=== PATIENT | male | born 1960 | race Caucasian/White ===

== ENCOUNTER 2016-04-19 14:39 | Inpatient (IN) | payer OTHER, MEDICARE ==
[2016-04-19] VITALS (8 sets, daily range): BP systolic 134–164; BP diastolic 74–91; PULSE 86–89; RESP 18–26; TEMP 99.9; O2SAT 86–98
[~2016-04-19] VITALS: Ht 182.9 cm; Wt 130.8 kg
[~2016-04-19 14:39] MED LIST: BAYE325T3 PO; CARV12.5 PO; DIGO0.12 PO; DOCU100T9 PO; FOSI20TA PO; FURO20TA PO; NEXI40GR PO; SYMB160A INH; TRAM50 PO
[2016-04-19] MEDS ORDERED: SODIUM CHLORIDE 0.9% FLUSH 5 ML FLUSH IVF PRN (15:45)
--- NOTE | 2016-04-19 16:16 | RADRPT ---
EXAM DATE/TIME: 04/19/2016 15:40 [facility] COMPARISON: CHEST SINGLE AP, January 24, 2012, 13:55. INDICATIONS : Patient complains of heart palpitations and chest pain. Also complains of generalized weakness. MEDICAL HISTORY : Asthma. SURGICAL HISTORY : Mitral valve replacement. ENCOUNTER: Initial ACUITY: 1 day PAIN SCORE: 7/10 LOCATION: chest FINDINGS: A single view of the chest demonstrates postoperative median sternotomy. Tortuous aorta. No focal con solidation or significant effusion. No pneumothorax. Mild cardiomegaly. CONCLUSION: 1. Mild cardiomegaly. Tortuous aorta. Minimal basilar dependent atelectasis. Hernán Ramey MD on April 19, 2016 at 16:11 Board Certified Radiologist. This report was verified electronically.
[2016-04-19 16:23] LABS: APTT (PATIENT) 36.2 SEC (24.3-30.1); BLOOD, URINE NEG (NEG); COMMENT (UR) CULT NOT INDICATED; CULTURE IF INDICATED CULT NOT INDICATED; GLUCOSE,URINE NEG (NEG); INTERNATIONAL NORMALIZED RATIO 1.5 RATIO; KETONE, URINE NEG (NEG); MUCUS URINE FEW /lpf (OCC); NITRITE,URINE NEG (NEG); PH, URINE 7.5 (5.0-8.5); PROTHROMBIN TIME - PATIENT 17.1 SEC (9.8-11.6); URINE COLOR YELLOW (YELLW/STRAW)
--- NOTE | 2016-04-19 16:25 | PD ---
HPI Chief Complaint: General Weakness Time Seen by Provider: 16:25 Travel History International Travel<30 days: No Contact w/Intl Traveler<30days: No Traveled to known affect area: No History of Present Illness HPI 55-year-old male with a history of CHF, mitral valve repair, atrial fibrillation , asthma, hypertension, DVT, anticoagulated on Coumadin presents to the emergency department for evaluation of worsening weakness and shortness of breath for the past 1-2 weeks. The patient also states he has had intermittent left anterior chest pressure over the past 2 weeks lasting for about 20-30 minutes at a time and resolving on its own, has had no chest pain today. He admits to having swelling in his lower legs but states that this is at his baseline, he is not more swollen than usual. He complains of feeling very weak states that he has been unable to get out of bed with the exception of using the bathroom for the past 2 weeks. States that when he gets up and tries to walk he feels lightheaded and as though he is going to pass out, denies actual syncope or loss of consciousness. Complains of subjective fevers and chills. Denies cough or cold symptoms, abdominal pain, dirreaha, bloody stool, dark stool, nausea, vomiting, numbness or tingling. No other complaints. PFSH Past Medical History Arthritis: Yes Asthma: Yes Atrial Fibrillation: Yes (COUMADIN) Blood Disorders: No Anxiety: Yes Depression: Yes Cancer: No Cardiac Catheterization: Yes (JAN 2012) Cardiovascular Problems: Yes High Cholesterol: Yes Congestive Heart Failure: Yes Diabetes: No Endocrine: No GERD: Yes Genitourinary: Yes (erectile dysfunction/UTIs) Hypertension: Yes Immune Disorder: No Musculoskeletal: Yes (Chronic Low Back) Neurologic: Yes (Post head injury) Psychiatric: Yes Reproductive: No Respiratory: Yes Sleep Apnea: Yes Past Surgical History Appendectomy: Yes Valve Replacement: Yes (MITRAL VALVE REPAIR) Other Surgery: Yes (RIGHT FOREARM/WRIST) Social History Alcohol Use: No Tobacco Use: No Substance Use: No Allergies-Medications (Allergen,Severity, Reaction): Coded Allergies: Gabapentin (Verified Allergy, Severe, 01/24/12) Nitroglycerin (Verified Allergy, Severe, 01/24/12) Silvadene (Verified Allergy, Severe, 01/24/12) Sulfa (Verified Allergy, Severe, 01/24/12) Viagra (Verified Allergy, Severe, 01/24/12) Reported Meds & Prescriptions Reported Meds & Active Scripts Active Ultram (Tramadol HCl) 50 Mg Tab 1-2 Tab PO Q6HPRN FOR PAIN Reported Coreg (Carvedilol) 12.5 Mg Tab 12.5 Mg PO BID Furosemide 20 Mg Tab 20 Mg PO DAILY Fosinopril Sodium 20 Mg Tab 20 Mg PO DAILY Docusate Sodium 100 Mg Cap 100 Mg PO DAILYPRN Digoxin 0.125 Mg Tab 0.25 Mg PO DAILY DOSE INCREASED Symbicort (Budesonide/Formoterol Fumarate) 160 Mcg/4.5 Mcg Aer 2 Puff INH BID * SHAKE WELL BEFORE USE * Nexium (Esomeprazole Magnesium) 40 Mg Gra 40 Mg PO DAILY Ludmila Aspirin (Aspirin) 325 Mg Tab 325 Mg PO DAILYPRN Review of Systems Except as stated in HPI: all other systems reviewed are Neg Physical Exam Narrative GENERAL: Well-nourished and well-developed pleasant male patient in no acute distress. SKIN: Warm and dry. HEAD: Normocephalic and atraumatic. EYES: No injection, drainage, or hyphema noted. PERRLA. EOMI. ENT: No nasal drainage noted. Oropharynx is clear. NECK: Supple and the trachea is midline. CARDIOVASCULAR: Regular rate and rhythm. RESPIRATORY: Decreased breath sounds throughout. No accessory muscle use. GASTROINTESTINAL: Abdomen is soft, non-tender, and nondistended. MUSCULOSKELETAL: Mild swelling of ankles bilaterally. No obvious deformities, cyanosis, or ecchymosis is present throughout the upper and lower extremities. Patient has full range of motion without any signs of neurovascular compromise. NEUROLOGICAL: Awake, alert, and oriented. Normal speech and gait. Cranial nerves are grossly intact. Data Data Last Documented VS Vital Signs Date Time Temp Pulse Resp B/P Pulse Ox O2 Delivery O2 Flow Rate FiO2 04/19/16 18:58 89 18 134/74 98 Nasal Cannula 2 04/19/16 15:39 99.9 Orders Electrocardiogram (04/19/16 15:31) Complete Blood Count With Diff (04/19/16 15:31) Comprehensive Metabolic Panel (04/19/16 15:31) Troponin I (04/19/16 15:31) Urinalysis - C+S If Indicated (04/19/16 15:31) Chest, Single Ap (04/19/16 15:31) Ecg Monitoring (04/19/16 15:31) Iv Access Insert/Monitor (04/19/16 15:31) Oximetry (04/19/16 15:31) Sodium Chloride 0.9% Flush (Ns Flush) (04/19/16 15:45) Prothrombin Time / Inr (Pt) (04/19/16 15:34) Act Partial Throm Time (Ptt) (04/19/16 15:34) B-Type Natriuretic Peptide (04/19/16 16:24) Albuterol-Ipratropium Neb (Duoneb Neb) (04/19/16 16:30) Digoxin (04/19/16 16:27) Ct Pulmonary Angiogram (04/19/16 16:33) Sodium Chlor 0.9% 1000 Ml Inj (Ns 1000 M (04/19/16 16:33) Acetaminophen (Tylenol) (04/19/16 17:30) Ct Brain W/O Iv Contrast(Rout) (04/19/16 17:43) Methylprednisolone So Succ Inj (Solumedr (04/19/16 18:15) Albuterol Neb (Albuterol Neb) (04/19/16 18:15) Iohexol 350 Inj (Omnipaque 350 Inj) (04/19/16 18:28) Azithromycin Inj (Zithromax Inj) (04/19/16 19:15) Ceftriaxone Inj (Rocephin Inj) (04/19/16 19:15) Admit Order (Ed Use Only) (04/19/16 19:16) Labs Laboratory Tests Test 04/19/16 04/19/16 15:52 16:45 White Blood Count 7.6 TH/MM3 Red Blood Count 4.02 MIL/MM3 Hemoglobin 12.0 GM/DL Hematocrit 35.1 % Mean Corpuscular Volume 87.3 FL Mean Corpuscular Hemoglobin 29.8 PG Mean Corpuscular Hemoglobin 34.2 % Concent Red Cell Distribution Width 14.9 % Platelet Count 157 TH/MM3 Mean Platelet Volume 9.1 FL Neutrophils (%) (Auto) 68.0 % Lymphocytes (%) (Auto) 18.5 % Monocytes (%) (Auto) 12.3 % Eosinophils (%) (Auto) 0.9 % Basophils (%) (Auto) 0.3 % Neutrophils # (Auto) 5.2 TH/MM3 Lymphocytes # (Auto) 1.4 TH/MM3 Monocytes # (Auto) 0.9 TH/MM3 Eosinophils # (Auto) 0.1 TH/MM3 Basophils # (Auto) 0.0 TH/MM3 CBC Comment DIFF FINAL Differential Comment Prothrombin Time 17.1 SEC Prothromb Time International 1.5 RATIO Ratio Activated Partial 36.2 SEC Thromboplast Time Urine Color YELLOW Urine Turbidity CLEAR Urine pH 7.5 Urine Specific [place] 1.008 Urine Protein NEG mg/dL Urine Glucose (UA) NEG mg/dL Urine Ketones NEG mg/dL Urine Occult Blood NEG Urine Nitrite NEG Urine Bilirubin NEG Urine Urobilinogen LESS THAN 2.0 MG/DL Urine Leukocyte Esterase NEG Urine WBC 1 /hpf Urine Mucus FEW /lpf Microscopic Urinalysis Comment CULT NOT INDICATED Sodium Level 140 MEQ/L Potassium Level 3.3 MEQ/L Chloride Level 105 MEQ/L Carbon Dioxide Level 27.3 MEQ/L Anion Gap 8 MEQ/L Blood Urea Nitrogen 8 MG/DL Creatinine 0.87 MG/DL Estimat Glomerular Filtration 90 ML/MIN Rate Random Glucose 94 MG/DL Calcium Level 8.5 MG/DL Total Bilirubin 1.0 MG/DL Aspartate Amino Transf 19 U/L (AST/SGOT) Alanine Aminotransferase 27 U/L (ALT/SGPT) Alkaline Phosphatase 43 U/L Troponin I 0.03 NG/ML Total Protein 7.0 GM/DL Albumin 3.7 GM/DL Digoxin Level LESS THAN 0.1 NG/ML B-Type Natriuretic Peptide 178 PG/ML MDM Medical Decision Making Medical Screen Exam Complete: Yes Emergency Medical Condition: Yes Differential Diagnosis Pneumonia versus asthma exacerbation versus CHF exacerbation versus PE Narrative Course 55-year-old male presents to the emergency department for evaluation of weakness and shortness of breath for 2 weeks. Patient has a low-grade fever of 99.9F. Otherwise vital signs are stable. EKG shows atrial fibrillation with no acute ST elevations or depressions. IV access is obtained, labs have been drawn and sent. Duonebs ordered. Chest x-ray shows mild cardiomegaly with a tortuous aorta and minimal basilar dependent atelectasis, otherwise unremarkable. CBC shows mild anemia with hemoglobin of 12.0, hematocrit 35.1. CMP shows mild hypokalemia with a potassium of 3.3. BNP is mildly elevated at 178. Coags show that the patient's INR is subtherapeutic at 1.5. Digoxin is less than 0.1. Urinalysis is unremarkable. Head CT is unremarkable. CT pulmonary angiogram is negative for PE but does show right upper lobe pneumonia. After 3 DuoNebs the patient has better air movement but still has decreased breath sounds on the left and mild expiratory wheeze on the right. The patient' s oxygen saturation is maintained on room air at 96% but with minimal exertion of a few steps his sats drop to 86% on room air. We'll give him another 3 albuterol treatments as well as Solu-Medrol 125 mg IV. I have ordered Rocephin 1 g and Zithromax 500 mg. Patient will be admitted for IV antibiotics, nebulizer treatments and steroids. I discussed the case with my attending physician Dr. Morales who is aware of the patients history, physical examination findings, and treatment plan. Physician Communication Physician Communication I spoke with Dr. Cervantes [facility] who agrees to admit the patient to her service. Diagnosis Primary Impression: Community acquired pneumonia Additional Impression: Hypoxia Admitting Information Admitting Physician Requests: Admit Kajal Torre Apr 19, 2016 16:25
[2016-04-19] MEDS ORDERED: SODIUM CHLOR 0.9% 1000 ML INJ 1,000 ML IV SCH (16:33)
[2016-04-19 16:39] LABS: AUTOMATED NEUTROPHIL # 5.2 TH/MM3 (1.8-7.7); BASOPHIL % 0.3 % (0.0-2.0); EOSINOPHIL # 0.1 TH/MM3 (0-0.4); EOSINOPHIL % 0.9 % (0.0-4.0); HEMATOCRIT 35.1 % (39.0-51.0); HEMO FLAGS DIFF FINAL; LYMPH % 18.5 % (9.0-44.0); LYMPHOCYTE # 1.4 TH/MM3 (1.0-4.8); MEAN CELL VOLUME 87.3 FL (80.0-100.0); MEAN CORPUSCULAR HEMOGLOBIN 29.8 PG (27.0-34.0); MEAN CORPUSCULAR HGB CONC 34.2 % (32.0-36.0); MONO % 12.3 % (0.0-8.0); PLATELET COUNT 157 TH/MM3 (150-450); RED BLOOD COUNT 4.02 MIL/MM3 (4.50-5.90); RED CELL DISTRIBUTION WIDTH 14.9 % (11.6-17.2); WHITE BLOOD COUNT 7.6 TH/MM3 (4.0-11.0)
[2016-04-19] MEDS: RESP: ALBUTEROL 2.5 MG/IPRATROPIUM 0.5 MG NEB (SCH) INH (16:48)
[2016-04-19 17:12] LABS: ALT (GPT) 27 U/L (12-78); ANION GAP 8 MEQ/L (5-15); AST (GOT) 19 U/L (15-37); BICARBONATE 27.3 MEQ/L (21.0-32.0); BLOOD UREA NITROGEN 8 MG/DL (7-18); CHLORIDE 105 MEQ/L (98-107); GLOMERULAR FILTRATION RATE 90 ML/MIN (>89); POTASSIUM 3.3 MEQ/L (3.5-5.1); SODIUM (NA) 140 MEQ/L (136-145)
[2016-04-19 17:16] LABS: ALKALINE PHOSPHATASE 43 U/L (45-117)
[2016-04-19] MEDS ORDERED: ACETAMINOPHEN 500 MG CPLT PO ONE (17:30)
[2016-04-19] MEDS ORDERED: methylPREDNISolone SOD SUCC 125 MG/2 ML VIAL IV PUSH ONE (18:15)
[2016-04-19] MEDS: RESP: ALBUTEROL 2.5 MG/3 ML NEB (SCH) INH ×2 (18:15→18:44)
[2016-04-19] MEDS ORDERED: IOHEXOL 350 MG/ML 10 ML VIAL (for RAD DIAG) IV ONE (18:28)
--- NOTE | 2016-04-19 18:36 | RADRPT ---
EXAM DATE/TIME: 04/19/2016 18:21 [facility] COMPARISON: No previous studies available for comparison. INDICATIONS : Increased weakness with multiple falls. RADIATION DOSE: 56.35 CTDIvol (mGy) MEDICAL HISTORY : Congestive hearrt failure. Hypertension. SURGICAL HISTORY : Appendectomy. Mitral valve repair ENCOUNTER: Initial ACUITY: 2 weeks PAIN SCALE: 3/10 LOCATION: cranial TECHNIQUE: Multiple contiguous axial images were obtained of the head. Using automated exposure control and adj ustment of the mA and/or kV according to patient size, radiation dose was kept as low as reasonably a chievable to obtain optimal diagnostic quality images. FINDINGS: CEREBRUM: The ventricles are normal for age. No evidence of midline shift, mass lesion, hemorrhage or acute in farction. No extra-axial fluid collections are seen. POSTERIOR FOSSA: The cerebellum and brainstem are intact. The 4th ventricle is midline. The cerebellopontine angle i s unremarkable. EXTRACRANIAL: The visualized portion of the orbits is intact. SKULL: The calvaria is intact. No evidence of skull fracture. CONCLUSION: Normal examination for a patient of this age. Hernán Ramey MD on April 19, 2016 at 18:33 Board Certified Radiologist. This report was verified electronically.
--- NOTE | 2016-04-19 18:50 | RADRPT ---
EXAM DATE/TIME: 04/19/2016 18:24 [facility] COMPARISON: No previous studies available for comparison. INDICATIONS : Increased weakness with shortness of breath; evaluate for pulmonary embolism. IV CONTRAST: 74 cc Omnipaque 350 (iohexol) IV RADIATION DOSE: 25.57 CTDIvol (mGy) MEDICAL HISTORY : Congestive hearrt failure. Hypertension. SURGICAL HISTORY : Appendectomy. Mitral valve repair. ENCOUNTER: Initial ACUITY: 2 weeks PAIN SCALE: 4/10 LOCATION: chest TECHNIQUE: Volumetric scanning of the chest was performed using a pulmonary embolism protocol MIP images were re constructed. Using automated exposure control and adjustment of the mA and/or kV according to patien t size, radiation dose was kept as low as reasonably achievable to obtain optimal diagnostic quality images. FINDINGS: There is some patchy groundglass opacity mostly in the upper lungs most characteristic of a mild bron chopneumonia. Heart size mildly enlarged with moderate to severe coronary calcifications. Previous mi tral valve repair. No filling defects to suggest pulmonary embolic disease. CONCLUSION: 1. Negative for pulmonary embolus. 2. Patchy groundglass opacity especially right upper lobe. Differential diagnosis includes pneumonia and hypersensitivity pneumonitis. Hernán Ramey MD on April 19, 2016 at 18:45 Board Certified Radiologist. This report was verified electronically.
--- NOTE | 2016-04-19 19:14 | PD ---
Data Data Last Documented VS Vital Signs Date Time Temp Pulse Resp B/P Pulse Ox O2 Delivery O2 Flow Rate FiO2 04/19/16 18:58 89 18 134/74 98 Nasal Cannula 2 04/19/16 15:39 99.9 Orders Electrocardiogram (04/19/16 15:31) Complete Blood Count With Diff (04/19/16 15:31) Comprehensive Metabolic Panel (04/19/16 15:31) Troponin I (04/19/16 15:31) Urinalysis - C+S If Indicated (04/19/16 15:31) Chest, Single Ap (04/19/16 15:31) Ecg Monitoring (04/19/16 15:31) Iv Access Insert/Monitor (04/19/16 15:31) Oximetry (04/19/16 15:31) Sodium Chloride 0.9% Flush (Ns Flush) (04/19/16 15:45) Prothrombin Time / Inr (Pt) (04/19/16 15:34) Act Partial Throm Time (Ptt) (04/19/16 15:34) B-Type Natriuretic Peptide (04/19/16 16:24) Albuterol-Ipratropium Neb (Duoneb Neb) (04/19/16 16:30) Digoxin (04/19/16 16:27) Ct Pulmonary Angiogram (04/19/16 16:33) Sodium Chlor 0.9% 1000 Ml Inj (Ns 1000 M (04/19/16 16:33) Acetaminophen (Tylenol) (04/19/16 17:30) Ct Brain W/O Iv Contrast(Rout) (04/19/16 17:43) Methylprednisolone So Succ Inj (Solumedr (04/19/16 18:15) Albuterol Neb (Albuterol Neb) (04/19/16 18:15) Iohexol 350 Inj (Omnipaque 350 Inj) (04/19/16 18:28) Azithromycin Inj (Zithromax Inj) (04/19/16 19:15) Ceftriaxone Inj (Rocephin Inj) (04/19/16 19:15) Labs Laboratory Tests Test 04/19/16 04/19/16 15:52 16:45 White Blood Count 7.6 TH/MM3 Red Blood Count 4.02 MIL/MM3 Hemoglobin 12.0 GM/DL Hematocrit 35.1 % Mean Corpuscular Volume 87.3 FL Mean Corpuscular Hemoglobin 29.8 PG Mean Corpuscular Hemoglobin 34.2 % Concent Red Cell Distribution Width 14.9 % Platelet Count 157 TH/MM3 Mean Platelet Volume 9.1 FL Neutrophils (%) (Auto) 68.0 % Lymphocytes (%) (Auto) 18.5 % Monocytes (%) (Auto) 12.3 % Eosinophils (%) (Auto) 0.9 % Basophils (%) (Auto) 0.3 % Neutrophils # (Auto) 5.2 TH/MM3 Lymphocytes # (Auto) 1.4 TH/MM3 Monocytes # (Auto) 0.9 TH/MM3 Eosinophils # (Auto) 0.1 TH/MM3 Basophils # (Auto) 0.0 TH/MM3 CBC Comment DIFF FINAL Differential Comment Prothrombin Time 17.1 SEC Prothromb Time International 1.5 RATIO Ratio Activated Partial 36.2 SEC Thromboplast Time Urine Color YELLOW Urine Turbidity CLEAR Urine pH 7.5 Urine Specific [place] 1.008 Urine Protein NEG mg/dL Urine Glucose (UA) NEG mg/dL Urine Ketones NEG mg/dL Urine Occult Blood NEG Urine Nitrite NEG Urine Bilirubin NEG Urine Urobilinogen LESS THAN 2.0 MG/DL Urine Leukocyte Esterase NEG Urine WBC 1 /hpf Urine Mucus FEW /lpf Microscopic Urinalysis Comment CULT NOT INDICATED Sodium Level 140 MEQ/L Potassium Level 3.3 MEQ/L Chloride Level 105 MEQ/L Carbon Dioxide Level 27.3 MEQ/L Anion Gap 8 MEQ/L Blood Urea Nitrogen 8 MG/DL Creatinine 0.87 MG/DL Estimat Glomerular Filtration 90 ML/MIN Rate Random Glucose 94 MG/DL Calcium Level 8.5 MG/DL Total Bilirubin 1.0 MG/DL Aspartate Amino Transf 19 U/L (AST/SGOT) Alanine Aminotransferase 27 U/L (ALT/SGPT) Alkaline Phosphatase 43 U/L Troponin I 0.03 NG/ML Total Protein 7.0 GM/DL Albumin 3.7 GM/DL Digoxin Level LESS THAN 0.1 NG/ML B-Type Natriuretic Peptide 178 PG/ML MDM Supervised Visit with NESTOR: Yes Narrative Course The history, exam, and medical decision-making in the associated midlevel provider note were completed with my assistance. I reviewed and agree with the findings presented. I attest that I had a [id number] encounter with the patient on the same day, and personally performed and documented my assessment and findings in the medical record. *My assessment and Findings: This is a 55-year-old male who presents the emergency department with shortness of breath. He is hypoxic on room air particularly when walking and desaturates to 86% with slight exertion. He has poor air movement, diffuse wheezing and evidence of pneumonia on the chest x- ray and CT imaging. Patient does have a low-grade fever. He will be admitted for continued bronchodilator treatments, prednisone and antibiotics for pneumonia. Diagnosis Primary Impression: Community acquired pneumonia Additional Impression: Hypoxia Admitting Information Admitting Physician Requests: Admit Shannon Morales MD Apr 19, 2016 19:14
[2016-04-19] MEDS ORDERED: cefTRIAXone INJ 1,000 MG in SODIUM CHLORIDE 0.9% INJ 100 ML IV ONE (19:15)
[2016-04-19] MEDS ORDERED: AZITHROMYCIN INJ 500 MG in SODIUM CHLOR 0.9% 250 ML INJ 250 ML IV ONE (19:15)
--- NOTE | 2016-04-19 19:25 | HHI.HP ---
HPI Service [facility] Primary [facility] Physician [place] Admission Diagnosis CAP w/ Hypoxia Diagnoses: (1) PNA (pneumonia) Diagnosis: Principal (2) Hypoxia Diagnosis: Principal (3) A-fib Diagnosis: Principal (4) Chronic anticoagulation Diagnosis: Principal (5) CHF (congestive heart failure) Diagnosis: Principal Travel History International Travel<30 Days: No Contact w/Intl Traveler <30 Da: No Traveled to Known Affected Are: No History of Present Illness Is a 55-year-old male with PMH of HTN, Anxiety, Depression, A. fib on Coumadin, CHF (Echo 01/09/12 w/ EF 55%), Asthma and h/o DVT who came into the ER for SOB x2 wks. Reports associated generalized weakness, lightheadedness and subjective fevers and chills, but denies cough, nausea/vomiting/diarrhea or sick contacts. On arrival, BP 164/84, HR 89, O2 sat 86% on RA, Temp 99.9. WBC normal. Chemistry essentially unremarkable except for K+ 3.3. INR 1.5. UA negative. CXR with mild cardiomegaly. CTA Pulm negative for PE, RUL patchy opacity. CT Head negative. S/p Rocephin/Zithro, DuoNeb and Solu-Medrol in ER w / some improvement. Review of Systems Other ROS: 14 point review of systems otherwise negative. Past Family Social History Past Medical History PMH: HTN, Anxiety, Depression, A. fib on Coumadin, CHF (Echo 01/09/12 w/ EF 55%) , Asthma and h/o DVT Past Surgical History PAST SURGICAL HISTORY: Appendectomy, Mitral Valve Repair, Right Wrist Allergies: Coded Allergies: Gabapentin (Verified Allergy, Severe, 01/24/12) Nitroglycerin (Verified Allergy, Severe, 01/24/12) Silvadene (Verified Allergy, Severe, 01/24/12) Sulfa (Verified Allergy, Severe, 01/24/12) Viagra (Verified Allergy, Severe, 01/24/12) Family History PAST FAMILY HISTORY: Reviewed. No h/o DM or CAD Social History PAST SOCIAL HISTORY: Negative for alcohol, tobacco or drugs. Physical Exam Vital Signs Vital Signs Date Time Temp Pulse Resp B/P Pulse Ox O2 Delivery O2 Flow Rate FiO2 04/19/16 18:58 89 18 134/74 98 Nasal Cannula 2 04/19/16 18:32 26 86 Room Air 04/19/16 18:31 86 20 144/91 94 Room Air 04/19/16 16:58 96 Nasal Cannula 3.00 04/19/16 15:42 83 26 98 Nasal Cannula 04/19/16 15:40 20 98 Nasal Cannula 3 04/19/16 15:39 99.9 89 22 164/84 98 Nasal Cannula 3 04/19/16 15:25 99.9 Physical Exam PE: GENERAL: Middle-aged white male in no acute distress, receiving DuoNeb. HEENT: PERRLA, EOMI. No scleral icterus or conjunctival pallor. No lid lag or facial droop. CARDIOVASCULAR: Regular rate and rhythm. No obvious murmurs to auscultation. No chest tenderness to palpation. RESPIRATORY: No obvious rhonchi or wheezing. Decreased breath sounds at bases bilaterally. GASTROINTESTINAL: Abdomen soft, non-tender, nondistended. BS normal. MUSCULOSKELETAL: Extremities without clubbing, cyanosis. 1-2+ pitting edema bilaterally, at baseline per patient. No obvious deformities. NEUROLOGICAL: Awake, alert and oriented x4. No focal neurologic deficits. Moving both upper and lower extremities spontaneously. Laboratory Laboratory Tests Test 04/19/16 04/19/16 15:52 16:45 White Blood Count 7.6 Red Blood Count 4.02 Hemoglobin 12.0 Hematocrit 35.1 Mean Corpuscular Volume 87.3 Mean Corpuscular Hemoglobin 29.8 Mean Corpuscular Hemoglobin 34.2 Concent Red Cell Distribution Width 14.9 Platelet Count 157 Mean Platelet Volume 9.1 Neutrophils (%) (Auto) 68.0 Lymphocytes (%) (Auto) 18.5 Monocytes (%) (Auto) 12.3 Eosinophils (%) (Auto) 0.9 Basophils (%) (Auto) 0.3 Neutrophils # (Auto) 5.2 Lymphocytes # (Auto) 1.4 Monocytes # (Auto) 0.9 Eosinophils # (Auto) 0.1 Basophils # (Auto) 0.0 CBC Comment DIFF FINAL Differential Comment Prothrombin Time 17.1 Prothromb Time International 1.5 Ratio Activated Partial 36.2 Thromboplast Time Urine Color YELLOW Urine Turbidity CLEAR Urine pH 7.5 Urine Specific [place] 1.008 Urine Protein NEG Urine Glucose (UA) NEG Urine Ketones NEG Urine Occult Blood NEG Urine Nitrite NEG Urine Bilirubin NEG Urine Urobilinogen LESS THAN 2.0 Urine Leukocyte Esterase NEG Urine WBC 1 Urine Mucus FEW Microscopic Urinalysis Comment CULT NOT INDICATED Sodium Level 140 Potassium Level 3.3 Chloride Level 105 Carbon Dioxide Level 27.3 Anion Gap 8 Blood Urea Nitrogen 8 Creatinine 0.87 Estimat Glomerular Filtration 90 Rate Random Glucose 94 Calcium Level 8.5 Total Bilirubin 1.0 Aspartate Amino Transf 19 (AST/SGOT) Alanine Aminotransferase 27 (ALT/SGPT) Alkaline Phosphatase 43 Troponin I 0.03 Total Protein 7.0 Albumin 3.7 Digoxin Level LESS THAN 0.1 B-Type Natriuretic Peptide 178 Result Diagram: 04/19/16 1552 04/19/161551 Assessment and Plan Problem List: (1) PNA (pneumonia) ICD Code: J18.9 Status: Acute (2) Hypoxia ICD Code: R09.02 Status: Acute (3) A-fib ICD Code: I48.91 Status: Acute (4) Chronic anticoagulation ICD Code: Z79.01 Status: Acute (5) CHF (congestive heart failure) ICD Code: I50.9 Status: Acute Assessment and Plan A/P: 1. PNA: CTA Pulm negative for PE, RUL patchy opacity, images reviewed by me. +progressive SOB x2 wks. Temp 99.9, no leukocytosis. S/p Rocephin/Zithro in ER , will continue w/ IV Abx for treatment of PNA. 2. Hypoxia: O2 sat 86% on RA while in ER. +decreased air movement and wheezing on exam, s/p Solu-Medrol and DuoNeb in ER, will continue w/ treatment. 3. A-fib: Chronic. Stable. Resume home Digoxin, Coreg and Coumadin. 4. Chronic Anticoagulation: On Coumadin for A-fib and h/o DVT. Subtherapeutic INR at 1.5. Resume home Coumadin. INR in am. 5. DVT Prophylaxis: Coumadin 6. Social work for d/c planning as needed. 7. Case discussed w/ ER physician at length. Physician Certification 2 Midnight Certification Type: Admission for Inpatient Services Order for Inpatient Services The services are ordered in accordance with Medicare regulations or non- Medicare payer requirements, as applicable. In the case of services not specified as inpatient-only, they are appropriately provided as inpatient services in accordance with the 2-midnight benchmark. Estimated LOS (days): 2 days is the estimated time the patient will need to remain in the hospital, assuming treatment plan goals are met and no additional complications. Post-Hospital Plan: Home Rosalia Cervantes MD Apr 19, 2016 19:25
[2016-04-19] MEDS ORDERED: SODIUM CHLORIDE 0.9% FLUSH 5 ML FLUSH FLUSH PRN (19:30)
[2016-04-19] MEDS ORDERED: RESP: ALBUTEROL 2.5 MG/IPRATROPIUM 0.5 MG NEB (PRN) NEB (19:30)
[2016-04-19] MEDS ORDERED: ONDANSETRON HCL 4 MG/2 ML VIAL IVP PRN (19:30)
[2016-04-19] MEDS ORDERED: ACETAMINOPHEN 325 MG TAB PO PRN (19:30)
[2016-04-19] MEDS ORDERED: MORPHINE SULFATE 4 MG/ML INJ IV PRN (19:30)
[2016-04-19] MEDS ORDERED: BISACODYL 10 MG SUPP PR PRN (19:30)
[2016-04-19] MEDS: RESP: ALBUTEROL 2.5 MG/IPRATROPIUM 0.5 MG NEB (SCH) NEB (20:31)
--- NOTE | 2016-04-19 21:58 | EKG ---
Date Performed: 04/19/2016 Time Performed: 15:32:08 PTAGE: 55 years EKG: ATRIAL FIBRILLATION WITH ABERRANT CONDUCTION OR VENTRICULAR PREMATURE COMPLEXES NONSPECIFIC ST & T-WAVE ABNORMALITY ABNORMAL RHYTHM ECG PREVIOUS TRACING : 01/24/2012 12.47 DOCTOR: Abelino Law Interpretating Date/Time 04/19/2016 21:58:08
[2016-04-19] MEDS: SODIUM CHLORIDE 0.9% FLUSH 5 ML FLUSH FLUSH SCH (22:10)
[2016-04-20] VITALS (8 sets, daily range): BP systolic 99–142; BP diastolic 56–92; PULSE 72–97; RESP 18–22; TEMP 95.8–97.8; O2SAT 93–97
[2016-04-20] MEDS: methylPREDNISolone SOD SUCC 40 MG/1 ML VIAL IV PUSH SCH ×4 (00:37→21:33)
[2016-04-20] MEDS: ACETAMINOPHEN/HYDROcodone 325 MG/5 MG TAB PO PRN ×2 (00:38→18:06)
[2016-04-20] MEDS: CARVEDILOL 12.5 MG TAB PO SCH ×3 (00:52→21:28)
[2016-04-20] MEDS ORDERED: POTASSIUM CHLORIDE 10 MEQ CONTROLLED RELEASE TAB PO ONE (01:15)
[2016-04-20] MEDS: BUDESONIDE-FORMOTEROL 160/4.5 MCG INHALER INH SCH ×3 (01:28→21:28)
[2016-04-20 07:03] LABS: AUTOMATED NEUTROPHIL # 4.8 TH/MM3 (1.8-7.7); HEMATOCRIT 34.8 % (39.0-51.0); HEMO FLAGS DIFF FINAL; LYMPH % 9.3 % (9.0-44.0); LYMPHOCYTE # 0.5 TH/MM3 (1.0-4.8); MEAN CELL VOLUME 88.3 FL (80.0-100.0); MEAN CORPUSCULAR HEMOGLOBIN 30.7 PG (27.0-34.0); MEAN CORPUSCULAR HGB CONC 34.8 % (32.0-36.0); MONO % 1.8 % (0.0-8.0); NEUT % 88.9 % (16.0-70.0); PLATELET COUNT 144 TH/MM3 (150-450); RED BLOOD COUNT 3.94 MIL/MM3 (4.50-5.90); RED CELL DISTRIBUTION WIDTH 14.5 % (11.6-17.2); WHITE BLOOD COUNT 5.4 TH/MM3 (4.0-11.0)
[2016-04-20 07:09] LABS: INTERNATIONAL NORMALIZED RATIO 1.5 RATIO; PROTHROMBIN TIME - PATIENT 16.9 SEC (9.8-11.6)
[2016-04-20 07:14] LABS: ALKALINE PHOSPHATASE 44 U/L (45-117); ALT (GPT) 27 U/L (12-78); ANION GAP 8 MEQ/L (5-15); AST (GOT) 15 U/L (15-37); BICARBONATE 26.6 MEQ/L (21.0-32.0); BLOOD UREA NITROGEN 11 MG/DL (7-18); CHLORIDE 104 MEQ/L (98-107); GLOMERULAR FILTRATION RATE 89 ML/MIN (>89); POTASSIUM 3.9 MEQ/L (3.5-5.1); SODIUM (NA) 139 MEQ/L (136-145); TOTAL BILIRUBIN ADULT 0.6 MG/DL (0.2-1.0)
--- NOTE | 2016-04-20 07:18 | HHI.PR ---
Subjective Remarks With sob. Says also he has LE edema, worsening. Less wheezing. C/o Chest pressure. + cough, feels congestion. No n/v/d/c. Objective Vitals Vital Signs Date Time Temp Pulse Resp B/P Pulse Ox O2 Delivery O2 Flow Rate FiO2 04/20/16 04:00 95.8 76 20 99/74 97 04/20/16 00:00 96.3 85 18 103/77 96 04/19/16 23:57 95 3.00 04/19/16 20:32 97 Nasal Cannula 3.00 04/19/16 18:58 89 18 134/74 98 Nasal Cannula 2 04/19/16 18:32 26 86 Room Air 04/19/16 18:31 86 20 144/91 94 Room Air 04/19/16 16:58 96 Nasal Cannula 3.00 04/19/16 15:42 83 26 98 Nasal Cannula 04/19/16 15:40 20 98 Nasal Cannula 3 04/19/16 15:39 99.9 89 22 164/84 98 Nasal Cannula 3 04/19/16 15:25 99.9 I/O 04/19/16 04/19/16 04/19/16 04/20/16 04/20/16 04/20/16 07:00 15:00 23:00 07:00 15:00 23:00 Intake Total 594 ml Output Total 400 ml Balance 194 ml Intake Oral 240 ml IV Total 354 ml Output Urine Total 400 ml # Bowel Movements 0 Result Diagram: 04/20/16 0505 04/20/16 0505 Imaging Last Impressions Head CT 04/19/16 1743 Signed Impressions: Service Date/Time: Tuesday, April 19, 2016 18:21 - CONCLUSION: Normal examination for a patient of this age. Hernán Ramey MD CT Angiography 04/19/16 1633 Signed Impressions: Service Date/Time: Tuesday, April 19, 2016 18:24 - CONCLUSION: 1. Negative for pulmonary embolus. 2. Patchy groundglass opacity especially right upper lobe. Differential diagnosis includes pneumonia and hypersensitivity pneumonitis. Hernán Ramey MD Chest X-Ray 04/19/16 1531 Signed Impressions: Service Date/Time: Tuesday, April 19, 2016 15:40 - CONCLUSION: 1. Mild cardiomegaly. Tortuous aorta. Minimal basilar dependent atelectasis. Hernán Ramey MD Objective Remarks GENERAL: Middle-aged white male in no acute distress, receiving DuoNeb. HEENT: PERRLA, EOMI. No scleral icterus or conjunctival pallor. No lid lag or facial droop. CARDIOVASCULAR: Regular rate and rhythm. No obvious murmurs to auscultation. No chest tenderness to palpation. RESPIRATORY: No obvious rhonchi or wheezing. Decreased breath sounds at bases bilaterally. GASTROINTESTINAL: Abdomen soft, non-tender, nondistended. BS normal. MUSCULOSKELETAL: Extremities without clubbing, cyanosis. 1-2+ pitting edema bilaterally, at baseline per patient. No obvious deformities. NEUROLOGICAL: Awake, alert and oriented x4. No focal neurologic deficits. Moving both upper and lower extremities spontaneously. A/P Problem List: (1) PNA (pneumonia) ICD Code: J18.9 Status: Acute (2) Hypoxia ICD Code: R09.02 Status: Acute (3) A-fib ICD Code: I48.91 Status: Acute (4) Chronic anticoagulation ICD Code: Z79.01 Status: Acute (5) CHF (congestive heart failure) ICD Code: I50.9 Status: Acute Assessment and Plan PNA: CTA Pulm negative for PE, RUL patchy opacity, images reviewed by me. + progressive SOB x2 wks. Temp 99.9, no leukocytosis. Continue Rocephin/Zithro i Check sputum cx, legionella /pneumococcal ag. Add mucinex. C/o chest pressure, will check troponin, CXR , EKG. Patient tachycardic, however after he received nebs. Taper steroids and duonebs. Hypoxia: O2 sat 86% on RA while in ER with +decreased air movement and wheezing on exam, on Solu-Medrol and DuoNebs, taper down as tolerated. O2 supplement keep O2 sat >94% A-fib: Chronic. Stable. Resume home Digoxin, Coreg and Coumadin. Chronic Anticoagulation: On Coumadin for A-fib and h/o DVT. Subtherapeutic INR at 1.5. Resume home Coumadin. INR in am. DVT Prophylaxis: Coumadin CM for d/c planning as needed. Discussed with the pt, nurse. Ashley Sutton MD Apr 20, 2016 07:18
[2016-04-20] MEDS: RESP: ALBUTEROL 2.5 MG/IPRATROPIUM 0.5 MG NEB (SCH) NEB ×3 (08:48→20:32)
[2016-04-20] MEDS ORDERED: FOSINOPRIL SODIUM 20 MG PO SCH (09:00)
[2016-04-20] MEDS: ASPIRIN EC 325 MG TABEC PO SCH (09:32)
[2016-04-20] MEDS: LISINOPRIL 20 MG TAB PO SCH (09:32)
[2016-04-20] MEDS: FUROSEMIDE 20 MG TAB PO SCH (09:33)
[2016-04-20] MEDS: DIGOXIN 0.25 MG TAB PO SCH (09:33)
[2016-04-20] MEDS: SODIUM CHLORIDE 0.9% FLUSH 5 ML FLUSH FLUSH SCH ×2 (09:33→21:29)
[2016-04-20] MEDS ORDERED: FUROSEMIDE 20 MG/2 ML VIAL IV PUSH ONE (14:30)
[2016-04-20] MEDS: LORazepam 0.5 MG TAB PO PRN (14:49)
--- NOTE | 2016-04-20 15:31 | RADRPT ---
EXAM DATE/TIME: 04/20/2016 14:42 [facility] COMPARISON: CHEST SINGLE AP, April 19, 2016, 15:40. INDICATIONS : Short of Breath, Chest Pain. MEDICAL HISTORY : Chronic obstructive pulmonary disease. Congestive hearrt failure. Hypertension. Asthma. SURGICAL HISTORY : Appendectomy. Mitral valve repair. ENCOUNTER: Initial ACUITY: 1 day PAIN SCORE: 5/10 LOCATION: Bilateral chest FINDINGS: A single view of the chest demonstrates the lungs to be symmetrically aerated without evidence of mas s, infiltrate or effusion. The cardiomediastinal contours are unremarkable stable mild cardiomegaly. Osseous structures are intact with evidence of prior median sternotomy.. CONCLUSION: No acute disease. No significant change has occurred. Gerry Beth MD on April 20, 2016 at 15:29 Board Certified Radiologist. This report was verified electronically.
[2016-04-20 16:39] LABS: MAGNESIUM 1.9 MG/DL (1.5-2.5)
[2016-04-20] MEDS ORDERED: METOPROLOL TARTRATE 25 MG TAB PO ONE (17:00)
[2016-04-20] MEDS: WARFARIN SOD 5 MG TAB PO SCH (17:07)
--- NOTE | 2016-04-20 19:39 | EKG ---
Date Performed: 04/20/2016 Time Performed: 15:33:17 PTAGE: 55 years EKG: ATRIAL FIBRILLATION NONSPECIFIC ST & T-WAVE ABNORMALITY ABNORMAL ECG PREVIOUS TRACING : 04/19/2016 15.32 Since previous tracing, no significant change noted DOCTOR: Abelino Law Interpretating Date/Time 04/20/2016 19:38:32
[2016-04-20] MEDS ORDERED: guaiFENesin E.R. 600 MG TAB PO SCH (21:00)
[2016-04-20] MEDS: AZITHROMYCIN INJ 500 MG in SODIUM CHLOR 0.9% 250 ML INJ 250 ML IV SCH (21:29)
[2016-04-20] MEDS: cefTRIAXone INJ 1,000 MG in SODIUM CHLORIDE 0.9% INJ 100 ML IV SCH (21:29)
[2016-04-20] MEDS: HYDROcodone 5 MG/HOMATROPINE 1.5 MG SYRUP 5 ML CUP PO PRN (23:11)
[2016-04-21] VITALS (8 sets, daily range): BP systolic 92–145; BP diastolic 51–90; PULSE 64–81; RESP 19–20; TEMP 95.4–97.2; O2SAT 95–98
[2016-04-21] MEDS: ACETAMINOPHEN/HYDROcodone 325 MG/5 MG TAB PO PRN ×3 (03:14→14:21)
[2016-04-21] MEDS: HYDROcodone 5 MG/HOMATROPINE 1.5 MG SYRUP 5 ML CUP PO PRN ×4 (03:30→21:52)
[2016-04-21] MEDS: methylPREDNISolone SOD SUCC 40 MG/1 ML VIAL IV PUSH SCH ×2 (05:57→14:17)
[2016-04-21 06:54] LABS: AUTOMATED NEUTROPHIL # 14.5 TH/MM3 (1.8-7.7); BASOPHIL % 0.1 % (0.0-2.0); HEMATOCRIT 34.8 % (39.0-51.0); HEMO FLAGS DIFF FINAL; LYMPH % 6.1 % (9.0-44.0); MEAN CELL VOLUME 87.6 FL (80.0-100.0); MEAN CORPUSCULAR HGB CONC 34.2 % (32.0-36.0); MONO % 6.4 % (0.0-8.0); NEUT % 87.4 % (16.0-70.0); PLATELET COUNT 204 TH/MM3 (150-450); RED BLOOD COUNT 3.97 MIL/MM3 (4.50-5.90); RED CELL DISTRIBUTION WIDTH 14.6 % (11.6-17.2); WHITE BLOOD COUNT 16.5 TH/MM3 (4.0-11.0)
[2016-04-21 07:09] LABS: BICARBONATE 26.7 MEQ/L (21.0-32.0); POTASSIUM 4.5 MEQ/L (3.5-5.1)
[2016-04-21] MEDS: CARVEDILOL 12.5 MG TAB PO SCH ×2 (08:06→19:56)
[2016-04-21] MEDS: FUROSEMIDE 20 MG TAB PO SCH (08:06)
[2016-04-21] MEDS: DIGOXIN 0.25 MG TAB PO SCH (08:06)
[2016-04-21] MEDS: LISINOPRIL 20 MG TAB PO SCH (08:07)
[2016-04-21] MEDS: BUDESONIDE-FORMOTEROL 160/4.5 MCG INHALER INH SCH ×2 (08:07→19:56)
[2016-04-21] MEDS: ASPIRIN EC 325 MG TABEC PO SCH (08:07)
[2016-04-21] MEDS: SODIUM CHLORIDE 0.9% FLUSH 5 ML FLUSH FLUSH SCH ×2 (08:08→19:56)
[2016-04-21] MEDS: RESP: ALBUTEROL 2.5 MG/IPRATROPIUM 0.5 MG NEB (SCH) NEB ×3 (08:36→19:46)
[2016-04-21] MEDS: WARFARIN SOD 5 MG TAB PO SCH (14:19)
[2016-04-21] MEDS: LORazepam 0.5 MG TAB PO PRN (14:21)
--- NOTE | 2016-04-21 14:33 | HHI.FPPN ---
Subjective Remarks Patient seen and examined this am. Saturating at 97% on 2 L Shortness of breath overall improved, but had some SOB this morning so was placed on oxygen. Uses CPAP at home. Has not walked around much. Tolerating diet. Objective Vitals Vital Signs Date Time Temp Pulse Resp B/P Pulse Ox O2 Delivery O2 Flow Rate FiO2 04/21/16 13:29 109/60 04/21/16 11:56 95.4 70 19 92/61 97 04/21/16 08:38 97 Nasal Cannula 2.00 04/21/16 07:15 96.2 64 19 130/89 98 04/21/16 04:10 96.7 75 19 118/51 95 04/21/16 00:00 96.2 70 20 145/79 95 04/20/16 21:28 Nasal Cannula 3.00 04/20/16 20:34 96 Nasal Cannula 1.50 04/20/16 20:10 97.3 85 21 140/56 97 04/20/16 15:19 97.3 97 22 133/74 95 I/O 04/20/16 04/20/16 04/20/16 04/21/16 04/21/16 04/21/16 07:00 15:00 23:00 07:00 15:00 23:00 Intake Total 594 ml 960 ml 720 ml 480 ml Output Total 400 ml Balance 194 ml 960 ml 720 ml 480 ml Intake Oral 240 ml 960 ml 720 ml 480 ml IV Total 354 ml Output Urine Total 400 ml # Voids 6 5 3 # Bowel Movements 0 3 1 0 Result Diagram: 04/21/16 0633 04/21/16 0633 Imaging Last Impressions Chest X-Ray 04/20/16 0000 Signed Impressions: Service Date/Time: Wednesday, April 20, 2016 14:42 - CONCLUSION: No acute disease. No significant change has occurred. Gerry Beth MD Head CT 04/19/16 0543 Signed Impressions: Service Date/Time: Tuesday, April 19, 2016 18:21 - CONCLUSION: Normal examination for a patient of this age. Hernán Ramey MD CT Angiography 04/19/16 1633 Signed Impressions: Service Date/Time: Tuesday, April 19, 2016 18:24 - CONCLUSION: 1. Negative for pulmonary embolus. 2. Patchy groundglass opacity especially right upper lobe. Differential diagnosis includes pneumonia and hypersensitivity pneumonitis. Hernán Ramey MD Objective Remarks GENERAL: Middle-aged white male in no acute distress, appears anxious HEENT: PERRLA, EOMI. No scleral icterus or conjunctival pallor. No lid lag or facial droop. CARDIOVASCULAR: Regular rate and rhythm. No obvious murmurs to auscultation. No chest tenderness to palpation. RESPIRATORY: No obvious rhonchi or wheezing. Decreased breath sounds at bases bilaterally. GASTROINTESTINAL: Abdomen soft, non-tender, nondistended. BS normal. MUSCULOSKELETAL: Extremities without clubbing, cyanosis. 1-2+ pitting edema bilaterally, at baseline per patient. No obvious deformities. NEUROLOGICAL: Awake, alert and oriented x4. No focal neurologic deficits. Moving both upper and lower extremities spontaneously. A/P Assessment and Plan 55 yo male presented with SOB found to have RUL PNA on CTA> PNA: CTA Pulm negative for PE, RUL patchy opacity. Afebrile with worsening leukocytosis today, has received steroids. * Continue Rocephin/Zithro (started 04/20) * Sputum cx ordered * Urine legionella /pneumococcal ag negative. * mucinex, hycodan for cough SOB: O2 sat 86% on RA while in ER, has since beein in the high 90s, currently 97% on 2 L. Trop neg x 2. * Duonebs * Solumedrol 40 mg IV q8 --> Changed to Prednisone 40 mg PO BID on 04/21 * Oxygen supplementatin at night since patient without CPAP machine A-fib: Chronic. Stable. Resume home Digoxin, Coreg and Coumadin. Chronic Anticoagulation: On Coumadin for A-fib and h/o DVT. Subtherapeutic INR at 1.5, likely due to patient not taking his medication for 2-3 days. Continue home Coumadin 5 mg. INR in am. DVT Prophylaxis: Coumadin Encourage out of bed and walking the halls. Discharge Planning D/C likely tomorrow pending clinical improvement, oxygen requirement, and stabilization of WBC. Problem List: (1) Community acquired pneumonia Status: Acute (2) COPD (chronic obstructive pulmonary disease) Status: Acute (3) A-fib Status: Acute (4) CHF (congestive heart failure) Status: Acute Fadumo Hunter MD R3 Apr 21, 2016 14:33
[2016-04-21] MEDS ORDERED: WARFARIN SOD 2 MG TAB PO SCH (16:00)
[2016-04-21] MEDS ORDERED: WARFARIN SOD 5 MG TAB PO SCH (16:00)
[2016-04-21] MEDS: cefTRIAXone INJ 1,000 MG in SODIUM CHLORIDE 0.9% INJ 100 ML IV SCH (19:55)
[2016-04-21] MEDS: AZITHROMYCIN INJ 500 MG in SODIUM CHLOR 0.9% 250 ML INJ 250 ML IV SCH (19:55)
[2016-04-21] MEDS: predniSONE 20 MG TAB PO SCH (19:56)
[2016-04-21] MEDS: PANTOPRAZOLE SOD 20 MG DELAYED RELEASE TAB PO SCH (19:58)
[2016-04-22] VITALS (9 sets, daily range): BP systolic 94–177; BP diastolic 62–90; PULSE 65–88; RESP 18–20; TEMP 95.4–98.7; O2SAT 94–100
[2016-04-22] MEDS: HYDROcodone 5 MG/HOMATROPINE 1.5 MG SYRUP 5 ML CUP PO PRN ×4 (02:50→20:33)
[2016-04-22 07:03] LABS: INTERNATIONAL NORMALIZED RATIO 1.5 RATIO; PROTHROMBIN TIME - PATIENT 17.1 SEC (9.8-11.6)
[2016-04-22 07:04] LABS: AUTOMATED NEUTROPHIL # 11.6 TH/MM3 (1.8-7.7); HEMATOCRIT 36.3 % (39.0-51.0); HEMO FLAGS DIFF FINAL; LYMPHOCYTE # 1.1 TH/MM3 (1.0-4.8); MEAN CELL VOLUME 88.5 FL (80.0-100.0); MEAN CORPUSCULAR HEMOGLOBIN 29.3 PG (27.0-34.0); MEAN CORPUSCULAR HGB CONC 33.1 % (32.0-36.0); MONO % 7.3 % (0.0-8.0); NEUT % 84.7 % (16.0-70.0); PLATELET COUNT 227 TH/MM3 (150-450); RED CELL DISTRIBUTION WIDTH 14.6 % (11.6-17.2); WHITE BLOOD COUNT 13.7 TH/MM3 (4.0-11.0)
[2016-04-22] MEDS: BUDESONIDE-FORMOTEROL 160/4.5 MCG INHALER INH SCH ×2 (08:26→20:30)
[2016-04-22] MEDS: LISINOPRIL 20 MG TAB PO SCH (08:27)
[2016-04-22] MEDS: predniSONE 20 MG TAB PO SCH ×2 (08:28→20:29)
[2016-04-22] MEDS: PANTOPRAZOLE SOD 20 MG DELAYED RELEASE TAB PO SCH (08:28)
[2016-04-22] MEDS: ASPIRIN EC 325 MG TABEC PO SCH (08:28)
[2016-04-22] MEDS: DIGOXIN 0.25 MG TAB PO SCH (08:28)
[2016-04-22] MEDS: CARVEDILOL 12.5 MG TAB PO SCH ×2 (08:28→22:50)
[2016-04-22] MEDS: ACETAMINOPHEN/HYDROcodone 325 MG/5 MG TAB PO PRN ×3 (08:29→18:14)
[2016-04-22] MEDS: RESP: ALBUTEROL 2.5 MG/IPRATROPIUM 0.5 MG NEB (SCH) NEB ×3 (08:31→22:45)
[2016-04-22] MEDS: LORazepam 0.5 MG TAB PO PRN (08:35)
[2016-04-22] MEDS: SODIUM CHLORIDE 0.9% FLUSH 5 ML FLUSH FLUSH SCH ×2 (08:36→20:30)
--- NOTE | 2016-04-22 11:49 | HHI.PR ---
Subjective Remarks Patient appears in nad. He says he feels depressed and cries at times and he takes meds. Says he has an upcoming appointment with his psych doctor. No suicidal /homicidal ideation. Feel anxious at times. He also c/o chest congestion, he is coughing. Feel weak. Says he doesn't feel ready to go home. Says he has constant chest pain . No sob, n/v/d/c. Objective Vitals Vital Signs Date Time Temp Pulse Resp B/P Pulse Ox O2 Delivery O2 Flow Rate FiO2 04/22/16 08:41 97 Room Air 04/22/16 07:31 95.7 66 20 177/63 97 04/22/16 05:00 96.4 73 20 120/81 98 04/22/16 00:50 96.7 78 20 130/90 98 04/21/16 21:55 95.8 79 19 131/90 97 04/21/16 20:06 Nasal Cannula 2.00 04/21/16 15:05 97.2 81 19 122/68 95 04/21/16 13:29 109/60 04/21/16 11:56 95.4 70 19 92/61 97 I/O 04/21/16 04/21/16 04/21/16 04/22/16 04/22/16 04/22/16 07:00 15:00 23:00 07:00 15:00 23:00 Intake Total 480 ml 720 ml 720 ml 480 ml Output Total 500 ml Balance 480 ml 720 ml 220 ml 480 ml Intake Oral 480 ml 720 ml 720 ml 480 ml Output Urine Total 500 ml # Voids 3 6 3 3 # Bowel Movements 0 1 0 0 Result Diagram: 04/22/16 0552 04/21/16 0633 Imaging Last Impressions Chest X-Ray 04/20/16 0000 Signed Impressions: Service Date/Time: Wednesday, April 20, 2016 14:42 - CONCLUSION: No acute disease. No significant change has occurred. Gerry Beth MD Head CT 04/19/16 1028 Signed Impressions: Service Date/Time: Tuesday, April 19, 2016 18:21 - CONCLUSION: Normal examination for a patient of this age. Hernán Ramey MD CT Angiography 04/19/16 1633 Signed Impressions: Service Date/Time: Tuesday, April 19, 2016 18:24 - CONCLUSION: 1. Negative for pulmonary embolus. 2. Patchy groundglass opacity especially right upper lobe. Differential diagnosis includes pneumonia and hypersensitivity pneumonitis. Hernán Ramey MD Objective Remarks GENERAL: Middle-aged white male in no acute distress, receiving DuoNeb. HEENT: PERRLA, EOMI. No scleral icterus or conjunctival pallor. No lid lag or facial droop. CARDIOVASCULAR: Regular rate and rhythm. No obvious murmurs to auscultation. No chest tenderness to palpation. RESPIRATORY: No obvious rhonchi or wheezing. Decreased breath sounds at bases bilaterally. GASTROINTESTINAL: Abdomen soft, non-tender, nondistended. BS normal. MUSCULOSKELETAL: Extremities without clubbing, cyanosis. 1-2+ pitting edema bilaterally, at baseline per patient. No obvious deformities. NEUROLOGICAL: Awake, alert and oriented x4. No focal neurologic deficits. Moving both upper and lower extremities spontaneously. A/P Problem List: (1) PNA (pneumonia) ICD Code: J18.9 Status: Acute (2) Hypoxia ICD Code: R09.02 Status: Acute (3) A-fib ICD Code: I48.91 Status: Acute (4) Chronic anticoagulation ICD Code: Z79.01 Status: Acute (5) CHF (congestive heart failure) ICD Code: I50.9 Status: Acute Assessment and Plan PNA: CTA Pulm negative for PE, RUL patchy opacity, images reviewed by me. + progressive SOB x2 wks. Temp 99.9, no leukocytosis. Continue Rocephin/Zithro i Check sputum cx, legionella /pneumococcal ag. Add mucinex. C/o chest pressure, will check troponin, CXR , EKG. Patient tachycardic, however after he received nebs. Taper steroids and duonebs. Hypoxia: O2 sat 86% on RA while in ER with +decreased air movement and wheezing on exam, on Solu-Medrol and DuoNebs, taper down as tolerated. O2 supplement keep O2 sat >94% A-fib: Chronic. Stable. Resume home Digoxin, Coreg and Coumadin. Chronic Anticoagulation: On Coumadin for A-fib and h/o DVT. Subtherapeutic INR at 1.5. Resume home Coumadin. INR in am. DVT Prophylaxis: Coumadin CM for d/c planning as needed. Discussed with the pt, nurse. Ashley Sutton MD Apr 22, 2016 11:49
[2016-04-22] MEDS ORDERED: PRED10PA PO (12:34)
--- NOTE | 2016-04-22 12:35 | HHI.DS ---
Discharge Summary Admission Date Apr 19, 2016 at 19:18 Discharge Date: Apr 23, 2016 Admitting Diagnosis CAP w/ Hypoxia (1) PNA (pneumonia) ICD Code: J18.9 Diagnosis: Principal (2) Hypoxia ICD Code: R09.02 Diagnosis: Principal (3) A-fib ICD Code: I48.91 Diagnosis: Secondary (4) Chronic anticoagulation ICD Code: Z79.01 Diagnosis: Secondary (5) CHF (congestive heart failure) ICD Code: I50.9 Diagnosis: Secondary Procedures none Brief History - From Admission Is a 55-year-old male with PMH of HTN, Anxiety, Depression, A. fib on Coumadin, CHF (Echo 01/09/12 w/ EF 55%), Asthma and h/o DVT who came into the ER for SOB x2 wks. Reports associated generalized weakness, lightheadedness and subjective fevers and chills, but denies cough, nausea/vomiting/diarrhea or sick contacts. On arrival, BP 164/84, HR 89, O2 sat 86% on RA, Temp 99.9. WBC normal. Chemistry essentially unremarkable except for K+ 3.3. INR 1.5. UA negative. CXR with mild cardiomegaly. CTA Pulm negative for PE, RUL patchy opacity. CT Head negative. S/p Rocephin/Zithro, DuoNeb and Solu-Medrol in ER w / some improvement. CBC/BMP: 04/22/16 0552 04/21/16 0633 Significant Findings Laboratory Tests Test 04/19/16 04/19/16 04/20/16 04/20/16 15:52 16:45 05:05 15:59 Red Blood Count 4.02 MIL/MM3 3.94 MIL/MM3 (4.50-5.90) (4.50-5.90) Hemoglobin 12.0 GM/DL 12.1 GM/DL (13.0-17.0) (13.0-17.0) Hematocrit 35.1 % 34.8 % (39.0-51.0) (39.0-51.0) Monocytes (%) (Auto) 12.3 % (0.0-8.0) Prothrombin Time 17.1 SEC 16.9 SEC (9.8-11.6) (9.8-11.6) Activated Partial 36.2 SEC Thromboplast Time (24.3-30.1) Urine Mucus FEW /lpf (OCC) Potassium Level 3.3 MEQ/L (3.5-5.1) Alkaline Phosphatase 43 U/L (45-117) 44 U/L (45-117) Digoxin Level LESS THAN 0.1 NG/ML (0.8-2.0) B-Type Natriuretic Peptide 178 PG/ML 156 PG/ML (0-100) (0-100) Platelet Count 144 TH/MM3 (150-450) Neutrophils (%) (Auto) 88.9 % (16.0-70.0) Lymphocytes # (Auto) 0.5 TH/MM3 (1.0-4.8) Random Glucose 236 MG/DL (74-106) Troponin I LESS THAN 0.02 NG/ML (0.02-0.05) Test 04/21/16 04/22/16 06:33 05:52 White Blood Count 16.5 TH/MM3 13.7 TH/MM3 (4.0-11.0) (4.0-11.0) Red Blood Count 3.97 MIL/MM3 4.10 MIL/MM3 (4.50-5.90) (4.50-5.90) Hemoglobin 11.9 GM/DL 12.0 GM/DL (13.0-17.0) (13.0-17.0) Hematocrit 34.8 % 36.3 % (39.0-51.0) (39.0-51.0) Neutrophils (%) (Auto) 87.4 % 84.7 % (16.0-70.0) (16.0-70.0) Lymphocytes (%) (Auto) 6.1 % 8.0 % (9.0-44.0) (9.0-44.0) Neutrophils # (Auto) 14.5 TH/MM3 11.6 TH/MM3 (1.8-7.7) (1.8-7.7) Monocytes # (Auto) 1.1 TH/MM3 1.0 TH/MM3 (0-0.9) (0-0.9) Random Glucose 143 MG/DL (74-106) Prothrombin Time 17.1 SEC (9.8-11.6) Imaging Last Impressions Chest X-Ray 04/20/16 0000 Signed Impressions: Service Date/Time: Wednesday, April 20, 2016 14:42 - CONCLUSION: No acute disease. No significant change has occurred. Gerry Beth MD Head CT 04/19/16 1743 Signed Impressions: Service Date/Time: Tuesday, April 19, 2016 18:21 - CONCLUSION: Normal examination for a patient of this age. Heránn Ramey MD CT Angiography 04/19/16 1633 Signed Impressions: Service Date/Time: Tuesday, April 19, 2016 18:24 - CONCLUSION: 1. Negative for pulmonary embolus. 2. Patchy groundglass opacity especially right upper lobe. Differential diagnosis includes pneumonia and hypersensitivity pneumonitis. Hernán Ramey MD PE at Discharge GENERAL: Middle-aged white male in no acute distress, receiving DuoNeb. HEENT: PERRLA, EOMI. No scleral icterus or conjunctival pallor. No lid lag or facial droop. CARDIOVASCULAR: Regular rate and rhythm. No obvious murmurs to auscultation. No chest tenderness to palpation. RESPIRATORY: No obvious rhonchi or wheezing. Decreased breath sounds at bases bilaterally. GASTROINTESTINAL: Abdomen soft, non-tender, nondistended. BS normal. MUSCULOSKELETAL: Extremities without clubbing, cyanosis. 1-2+ pitting edema bilaterally, at baseline per patient. No obvious deformities. NEUROLOGICAL: Awake, alert and oriented x4. No focal neurologic deficits. Moving both upper and lower extremities spontaneously. Pt update on day of discharge Patient feels much better today. Denies cp, sob, n/v/d/c. Feels comfortable to go home. Hospital Course Alcohol withdrawal The patient was tachycardic, tremulous, weak and had muscle cramping in the lower extremities. He says this happens several times a year. Magnesium and phosphorous levels were very low. Withdrawal worse 04/21. CIWA score went over 20. Pt was to be transferred to ICU but no beds available. Public Service Administrator consult appreciated. Withdrawal improved 04/22. - stable - CIWA protocol. - Monitor electrolytes and replete as needed. - Monitor on telemetry. - Multivitamin, folate and thiamine. - cessation instruction. Weakness/ spasms/ hypomagnesemia/ hypophosphatemia/ hypokalemia Likely secondary to alcohol abuse and decreased PO intake. Replaced. - Treatment as above. - Physical therapy and case management evaluations. - mg sulfate, K phos and KCl repletion. - encourage PO intake. HTN Not hypertensive at this time. - continue home meds. - clonidine as needed. Thrombocytopenia Likely secondary to chronic alcohol abuse. - Follow CBC. - d/c Lovenox. Improved. PT recommends home without PT. Passed O2 walking test. Patient was discharged home in fairly good condition. To follow up with PCP at [place] and [facility]. Pt Condition on Discharge: Fair Discharge Disposition: Discharge Home Discharge Time: <= 30 minutes Discharge Instructions DIET: Follow Instructions for: Heart Healthy Diet Activities you can perform: Regular-No Restrictions Follow up Referrals: PCP Follow-up - 3-5 Days New Medications: Cetirizine (Zyrtec Allergy) 10 Mg Cap 10 MG PO HS Allergies #30 Ref 0 CAP Fluticasone-Salmeterol 12 GM Inh (Advair Hfa 12 GM Inh) 115-21 Mcg/Act Aer 2 PUFF INH BID allergic pneumonitis #1 Ref 0 INHALER Prednisone (21) 10 mg tab Dose Pack (Prednisone (21) 10 mg tab Dose Pack) 10 Mg Pack 10 MG PO DIRECTED Inflammation #1 Ref 0 DSPK Continued Medications: Aspirin (Ludmila Aspirin) 325 Mg Tab 325 MG PO DAILYPRN Budesonide-Formoterol Fumarate (Symbicort) 160 Mcg/4.5 Mcg Aer 2 PUFF INH BID * SHAKE WELL BEFORE USE * #1 Carvedilol 12.5 mg (Coreg 12.5 mg) 12.5 Mg Tab 12.5 MG PO BID Digoxin 0.125 mg (Digoxin 0.125 mg) 0.125 Mg Tab 0.25 MG PO DAILY DOSE INCREASED Docusate Sodium (Docusate Sodium) 100 Mg Cap 100 MG PO DAILYPRN Esomeprazole Magnesium packet (Nexium packet) 40 Mg Gra 40 MG PO DAILY Fosinopril Sodium (Fosinopril Sodium) 20 Mg Tab 20 MG PO DAILY Furosemide (Furosemide) 20 Mg Tab 20 MG PO DAILY Tramadol Hcl (Ultram) 50 Mg Tab 1 - 2 TAB PO Q6HPRN FOR PAIN #20 Ashley Sutton MD Apr 22, 2016 12:35
[2016-04-22] MEDS ORDERED: WARFARIN SOD 5 MG TAB PO SCH (16:00)
[2016-04-22] MEDS: ENOXAPARIN SODIUM 150 MG/ML SYRINGE SQ SCH ×2 (16:25→22:49)
[2016-04-22] MEDS: AZITHROMYCIN INJ 500 MG in SODIUM CHLOR 0.9% 250 ML INJ 250 ML IV SCH (20:28)
[2016-04-22] MEDS: cefTRIAXone INJ 1,000 MG in SODIUM CHLORIDE 0.9% INJ 100 ML IV SCH (20:29)
[2016-04-23] VITALS: BP 139/72; PULSE 78; TEMP 96.3; O2SAT 100
[2016-04-23] MEDS: HYDROcodone 5 MG/HOMATROPINE 1.5 MG SYRUP 5 ML CUP PO PRN ×3 (01:06→11:29)
[2016-04-23 04:00] VITALS: BP 137/95; PULSE 67; RESP 18; TEMP 96.2; O2SAT 97
[2016-04-23 06:57] LABS: INTERNATIONAL NORMALIZED RATIO 2.1 RATIO; PROTHROMBIN TIME - PATIENT 23.6 SEC (9.8-11.6)
[2016-04-23 08:00] VITALS: BP 139/84; PULSE 63; RESP 20; TEMP 95.3; O2SAT 98
[2016-04-23] MEDS ORDERED: ADVA115A INH (08:08)
[2016-04-23] MEDS ORDERED: ZYRT10CA PO (08:08)
[2016-04-23 08:35] LABS: AUTOMATED NEUTROPHIL # 7.2 TH/MM3 (1.8-7.7); BASOPHIL % 0.1 % (0.0-2.0); HEMATOCRIT 36.6 % (39.0-51.0); HEMO FLAGS DIFF FINAL; LYMPH % 15.2 % (9.0-44.0); LYMPHOCYTE # 1.5 TH/MM3 (1.0-4.8); MEAN CELL VOLUME 88.4 FL (80.0-100.0); MEAN CORPUSCULAR HEMOGLOBIN 29.5 PG (27.0-34.0); MEAN CORPUSCULAR HGB CONC 33.3 % (32.0-36.0); MONO % 10.1 % (0.0-8.0); NEUT % 74.6 % (16.0-70.0); PLATELET COUNT 210 TH/MM3 (150-450); RED BLOOD COUNT 4.14 MIL/MM3 (4.50-5.90); RED CELL DISTRIBUTION WIDTH 14.8 % (11.6-17.2); WHITE BLOOD COUNT 9.6 TH/MM3 (4.0-11.0)
[2016-04-23] MEDS: RESP: ALBUTEROL 2.5 MG/IPRATROPIUM 0.5 MG NEB (SCH) NEB ×2 (08:50→11:52)
[2016-04-23] MEDS ORDERED: VENLAFAXINE HCL 25 MG TAB PO SCH (09:00)
[2016-04-23] MEDS: PANTOPRAZOLE SOD 20 MG DELAYED RELEASE TAB PO SCH (09:41)
[2016-04-23] MEDS: DIGOXIN 0.25 MG TAB PO SCH (09:41)
[2016-04-23] MEDS: ASPIRIN EC 325 MG TABEC PO SCH (09:41)
[2016-04-23] MEDS: LISINOPRIL 20 MG TAB PO SCH (09:41)
[2016-04-23] MEDS: CARVEDILOL 12.5 MG TAB PO SCH (09:41)
[2016-04-23] MEDS: predniSONE 20 MG TAB PO SCH (09:41)
[2016-04-23] MEDS: BUDESONIDE-FORMOTEROL 160/4.5 MCG INHALER INH SCH (09:43)
[2016-04-23] MEDS: SODIUM CHLORIDE 0.9% FLUSH 5 ML FLUSH FLUSH SCH (09:43)
[2016-04-23] MEDS: ENOXAPARIN SODIUM 150 MG/ML SYRINGE SQ SCH (11:30)
[2016-04-23 12:00] VITALS: BP 134/86; PULSE 24; RESP 24; TEMP 96.5; O2SAT 98
--- NOTE | 2016-04-23 13:52 | HHI.DCPOC ---
Discharge Care Plan Goals to Promote Your Health * To prevent worsening of your condition and complications * To maintain your health at the optimal level Directions to Meet Your Goals Take your medications as prescribed Follow your dietary instruction Follow activity as directed Keep your appointments as scheduled Take your immunizations and boosters as scheduled If your symptoms worsen call your PCP, if no PCP go to Urgent Care Center or Emergency Room Smoking is Dangerous to Your Health. Avoid second hand smoke Call the 24-hour hour crisis hotline for domestic abuse at Ashley Sutton MD Apr 23, 2016 13:52
--- NOTE | 2016-04-26 16:16 | PQ ---
Physician Query Response Document PATIENT: NEIDA LOPEZ : 1960 ADMIT DATE: 04/19/2016 7:18 PM DISCH DATE: 04/23/2016 1:49 PM RESPONDING PROVIDER #: [email or web address] QUERY TEXT: CHF Acuity and Type Congestive Heart Failure is documented in the Medical Record. Please document the type and acuity (in cludes probable or suspected) Such as: Type: -- Systolic -- Diastolic -- Combined -- Other, please specify Acuity: -- Acute -- Chronic -- Acute on chronic -- Other, please specify Also please document the underlying cause of the CHF (includes probable or suspected) The patient's Clinical Indicators include: 04/19/16 Admission Diagnosis CAP w/ Hypoxia H Is a 55-year-old male with PMH of HTN, Anxiety, Depression, A. fib on Coumadin, CHF (Echo 01/09/12 w/ EF 55%), Asthma and h/o DVT who came into the ER for SOB x2 wks. ASSESSMENT AND PLAN STATES: Problem List: (1) PNA (pneumonia) ICD Code: J18.9 Status: Acute (2) Hypoxia ICD Code: R09.02 Status: Acute (3) A-fib ICD Code: I48.91 Status: Acute (4) Chronic anticoagulation ICD Code: Z79.01 Status: Acute (5) CHF (congestive heart failure) ICD Code: I50.9 Status: Acute CLINICAL INDICATORS: 04/19/16 BNP - 178 H, 04/20/16 BNP - 156 H NO 2 D ECHO NOTED Query created by: Luz Sena on 04/23/2016 11:09 AM RESPONSE TEXT: CHF with preserved EF 55% . Patient with elevated BNP on admission 170s and clinical presentation. Electronically signed by: Ashley Sutton MD 04/25/2016 5:40 PM
--- NOTE | 2016-04-30 16:03 | HHI.DS ---
Discharge Summary Admission Date Apr 19, 2016 at 19:18 Discharge Date: Apr 23, 2016 Admitting Diagnosis CAP w/ Hypoxia (1) PNA (pneumonia) ICD Code: J18.9 Diagnosis: Principal (2) Hypoxia ICD Code: R09.02 Diagnosis: Principal (3) A-fib ICD Code: I48.91 Diagnosis: Secondary (4) Chronic anticoagulation ICD Code: Z79.01 Diagnosis: Secondary (5) CHF (congestive heart failure) ICD Code: I50.9 Diagnosis: Secondary Procedures none Brief History - From Admission Is a 55-year-old male with PMH of HTN, Anxiety, Depression, A. fib on Coumadin, CHF (Echo 01/09/12 w/ EF 55%), Asthma and h/o DVT who came into the ER for SOB x2 wks. Reports associated generalized weakness, lightheadedness and subjective fevers and chills, but denies cough, nausea/vomiting/diarrhea or sick contacts. On arrival, BP 164/84, HR 89, O2 sat 86% on RA, Temp 99.9. WBC normal. Chemistry essentially unremarkable except for K+ 3.3. INR 1.5. UA negative. CXR with mild cardiomegaly. CTA Pulm negative for PE, RUL patchy opacity. CT Head negative. S/p Rocephin/Zithro, DuoNeb and Solu-Medrol in ER w / some improvement. Imaging Last Impressions Chest X-Ray 04/20/16 0000 Signed Impressions: Service Date/Time: Wednesday, April 20, 2016 14:42 - CONCLUSION: No acute disease. No significant change has occurred. Gerry Beth MD Head CT 04/19/16 1743 Signed Impressions: Service Date/Time: Tuesday, April 19, 2016 18:21 - CONCLUSION: Normal examination for a patient of this age. Hernán Ramey MD CT Angiography 04/19/16 1633 Signed Impressions: Service Date/Time: Tuesday, April 19, 2016 18:24 - CONCLUSION: 1. Negative for pulmonary embolus. 2. Patchy groundglass opacity especially right upper lobe. Differential diagnosis includes pneumonia and hypersensitivity pneumonitis. Hernán Ramey MD PE at Discharge GENERAL: Middle-aged white male in no acute distress, receiving DuoNeb. HEENT: PERRLA, EOMI. No scleral icterus or conjunctival pallor. No lid lag or facial droop. CARDIOVASCULAR: Regular rate and rhythm. No obvious murmurs to auscultation. No chest tenderness to palpation. RESPIRATORY: No obvious rhonchi or wheezing. Decreased breath sounds at bases bilaterally. GASTROINTESTINAL: Abdomen soft, non-tender, nondistended. BS normal. MUSCULOSKELETAL: Extremities without clubbing, cyanosis. 1-2+ pitting edema bilaterally, at baseline per patient. No obvious deformities. NEUROLOGICAL: Awake, alert and oriented x4. No focal neurologic deficits. Moving both upper and lower extremities spontaneously. Pt update on day of discharge Patient feels much better today. Denies cp, sob, n/v/d/c. Feels comfortable to go home. Hospital Course PNA: CTA Pulm negative for PE, RUL patchy opacity, images reviewed by me. + progressive SOB x2 wks. Temp 99.9, no leukocytosis. Continue Rocephin/Zithro Check sputum cx, legionella /pneumococcal ag, neg Add mucinex. C/o chest pressure, will check troponin, CXR , EKG. Patient tachycardic, however after he received nebs. Taper steroids and duonebs. Patient with likely allergic pneumonitis. Hypoxia: O2 sat 86% on RA while in ER with +decreased air movement and wheezing on exam, on Solu-Medrol and DuoNebs, taper down as tolerated. O2 supplement keep O2 sat >94% A-fib: Chronic. Stable. Resume home Digoxin, Coreg and Coumadin. Chronic Anticoagulation: On Coumadin for A-fib and h/o DVT. Subtherapeutic INR at 1.5. Resume home Coumadin. INR in am. Improved. PT recommends home without PT. Passed O2 walking test. Patient was discharged home in fairly good condition. To follow up with PCP at [facility]. Pt Condition on Discharge: Fair Discharge Disposition: Discharge Home Discharge Time: <= 30 minutes Discharge Instructions DIET: Follow Instructions for: Heart Healthy Diet Activities you can perform: Regular-No Restrictions Follow up Referrals: PCP Follow-up - 3-5 Days New Medications: Cetirizine (Zyrtec Allergy) 10 Mg Cap 10 MG PO HS Allergies #30 Ref 0 CAP Prednisone (21) 10 mg tab Dose Pack (Prednisone (21) 10 mg tab Dose Pack) 10 Mg Pack 10 MG PO DIRECTED Inflammation #1 Ref 0 DSPK Continued Medications: Aspirin (Ludmila Aspirin) 325 Mg Tab 325 MG PO DAILYPRN Budesonide-Formoterol Fumarate (Symbicort) 160 Mcg/4.5 Mcg Aer 2 PUFF INH BID * SHAKE WELL BEFORE USE * #1 Carvedilol 12.5 mg (Coreg 12.5 mg) 12.5 Mg Tab 12.5 MG PO BID Digoxin 0.125 mg (Digoxin 0.125 mg) 0.125 Mg Tab 0.25 MG PO DAILY DOSE INCREASED Docusate Sodium (Docusate Sodium) 100 Mg Cap 100 MG PO DAILYPRN Esomeprazole Magnesium packet (Nexium packet) 40 Mg Gra 40 MG PO DAILY Fosinopril Sodium (Fosinopril Sodium) 20 Mg Tab 20 MG PO DAILY Furosemide (Furosemide) 20 Mg Tab 20 MG PO DAILY Tramadol Hcl (Ultram) 50 Mg Tab 1 - 2 TAB PO Q6HPRN FOR PAIN #20 Ashley Sutton MD Apr 30, 2016 16:03
== END 2016-04-23 13:49 | disposition home or self-care (01) | DRG 196 ==
LOC: NEPE 14:39 → NEDA 19:18 → N06A 23:23
PROVIDERS: ADMIT Hospitalist; ATTEND Hospitalist
DX: J67.9 Hypersensitivity pneumonitis due to unspecified organic dust (principal); I50.33 Acute on chronic diastolic (congestive) heart failure; I48.2 Chronic atrial fibrillation; J44.9 Chronic obstructive pulmonary disease, unspecified; R09.02 Hypoxemia; J45.909 Unspecified asthma, uncomplicated; R07.89 Other chest pain; F41.9 Anxiety disorder, unspecified; F32.9 Major depressive disorder, single episode, unspecified; I11.0 Hypertensive heart disease with heart failure; K21.9 Gastro-esophageal reflux disease without esophagitis; Z86.718 Personal history of other venous thrombosis and embolism; Z79.01 Long term (current) use of anticoagulants; Z88.2 Allergy status to sulfonamides; Z88.8 Allergy status to other drugs, medicaments and biological substances
CPT/HCPCS: 70450; 71010; 71275; 80048; 80053; 80162; 81001; 83735; 83880; 84484; 85025; 85610; 85730; 87449; 93005; 94150; 94620; 94640; 94664; 96374; J0456; J0696; J1650; J1940; J2920; J2930; J7050; J7512; J7613; Q9967

== ENCOUNTER 2018-03-26 11:48 | Inpatient (IN) ==
[2018-03-26] MEDS ORDERED: MethylPREDNISolone Sod Succinate Inj 125 MG/2 ML Vial IV.PUSH ONE (12:19)
[2018-03-26 12:49] LABS: Baso % (Auto) 0.5 % (0.0-2.0); Eos # (Auto) 0.3 th/mm3 (0.0-0.4); Hematocrit 41.1 % (39.0-51.0); Hemoglobin 13.7 gm/dL (13.0-17.0); Lymph # (Auto) 0.8 th/mm3 (1.0-4.8); Lymph % (Auto) 10.5 % (9.0-44.0); Mean Corpuscular HGB Conc 33.4 % (32.0-36.0); Mean Corpuscular Hemoglobin 30.7 pg (27.0-34.0); Mean Platelet Volume 8.4 fL (7.0-11.0); Mono # (Auto) 1.2 th/mm3 (0.0-0.9); Mono % (Auto) 15.4 % (0.0-8.0); Neut # (Auto) 5.4 th/mm3 (1.8-7.7); Neut % (Auto) 69.6 % (16.0-70.0); Platelet Count 164 th/mm3 (150-450); Red Blood Count 4.47 mil/mm3 (4.50-5.90); Red Cell Distribution Width 15.1 % (11.6-17.2); White Blood Count 7.7 th/mm3 (4.0-11.0)
--- NOTE | 2018-03-26 12:52 | ED ---
HPI General Chief complaint: Respiratory Symptoms Stated complaint: Dr sent/Cold Symptoms Time Seen by Provider: 03/26/18 12:15 Source: patient and RN notes reviewed Mode of arrival: ambulatory History of Present Illness HPI narrative: 57yM presenting with cough and congestion. The patient states that for the past 5 days he's had cough productive of clear sputum, chest congestion, and tactile fevers/ chills. He denies chest pain, palpitations, vomiting, diarrhea, or dysuria. No known recent sick contacts. History of SOCO on nocturnal CPAP, CHF, no known history of COPD. Related Data Home Medications Medication Instructions Recorded Confirmed albuterol sulfate 2 puff INHALATION Q4-6H PRN 03/26/18 03/26/18 baclofen 10 mg PO TID 03/26/18 03/26/18 budesonide-formoterol 2 puff INHALATION BID 03/26/18 03/26/18 carboxymethylcellulose-glycern 2 drp OPHTHALMIC (EYE) HS PRN 03/26/18 03/26/18 [Lubricating Drops] carvedilol 12.5 mg PO BID 03/26/18 03/26/18 fluticasone 2 spray INTRANASAL DAILY 03/26/18 03/26/18 hydroxyzine HCl 25 mg PO BID NEB PRN 03/26/18 03/26/18 lamotrigine 100 mg PO DAILY 03/26/18 03/26/18 montelukast 10 mg PO QPM 03/26/18 03/26/18 venlafaxine 150 mg PO DAILY 03/26/18 03/26/18 warfarin 5 mg PO DAILY 03/26/18 03/26/18 Allergies Allergy/AdvReac Type Severity Reaction Status Date / Time gabapentin Allergy Severe Hives Verified 03/26/18 12:21 nitroglycerin Allergy Severe Hotflash Verified 03/26/18 12:21 sildenafil Allergy Severe Hives Verified 03/26/18 12:21 silver sulfadiazine Allergy Severe Hives Verified 03/26/18 12:21 Sulfa (Sulfonamide Allergy Severe Hives Verified 03/26/18 12:21 Antibiotics) Review of Systems ROS: all other systems reviewed are negative Constitutional Reports chills and Reports fever(s) Eyes Denies blurry vision ENT Reports nasal congestion Cardiovascular Denies chest pain Respiratory Reports cough Gastrointestinal Reports nausea and Denies vomiting Genitourinary Denies dysuria Musculoskeletal Denies back pain Neurologic Denies confusion Psychiatric Denies confusion [facility] Medical History Medical History Allergic rhinitis (Acute) Asthma (Acute) Atrial fibrillation (Acute) Carpal tunnel syndrome (Acute) Chest pain, atypical (Acute) Chronic depression (Acute) Chronic low back pain (Acute) Congestive heart failure (Acute) Generalized anxiety disorder (Acute) Hyperlipidemia (Acute) Hypertension (Acute) Impingement syndrome, shoulder, left (Acute) correction current use of anticoagulant therapy (Acute) Major depression in partial remission (Acute) Mitral valve stenosis (Acute) Obesity (Acute) Osteoarthritis (Acute) Peripheral venous insufficiency (Acute) Personality disorder, unspecified (Acute) Sciatica (Acute) Sensorineural hearing loss (Acute) Sleep apnea (Acute) Traumatic arthritis (Acute) Trichiasis of eyelid without entropion (Acute) Social History Social History Substance History: No History of Abuse Smoking Status: Never smoker How Often Do You Have a Drink Containing Alcohol: Never Recent Travel in [facility] within the Last 8 Weeks: No Recent Out of Country Travel within the Last 8 Weeks: No Immunization History Tetanus Immunization: <5 Years Exam Const Other: Appears uncomfortable, no acute distress HENMT Face and sinus: normal facial exam Eyes General: appearance normal, both eyes and all related structures Resp Other: Cough noted throughout exam, speaking in complete sentences, expiratory wheeze bilaterally Cardio Rhythm: regular rhythm GI Inspection: non-distended Palpation: soft and nontender Skin General: no rashes or lesions noted Neuro General: alert, awake, oriented x3 and no focal motor deficits Psych Affect: normal affect Course Initial Documented Vital Signs Temperature 99.3 F 03/26/18 11:55 Pulse Rate 127 H 03/26/18 11:55 Respiratory Rate 28 H 03/26/18 11:55 Blood Pressure 160/110 H 03/26/18 11:55 Pulse Oximetry 97 03/26/18 11:55 Last Documented Vital Signs Temperature 99.3 F 03/26/18 11:55 Pulse Rate 80 03/26/18 13:18 Respiratory Rate 18 03/26/18 13:18 Blood Pressure 130/74 03/26/18 13:18 Pulse Oximetry 99 03/26/18 13:18 Medical Decision Making MDM Narrative Medical decision making narrative: Assessment: 57yM presenting with cough and congestion Plan: Nebs and steroids CXR Labs EKG and monitor Addendum: Patient's cough and wheezing improved after nebs and steroids, CXR shows cardiomegaly concerning for possible pericardial effusion. I explained these results to the patient as well as plan to keep him for further workup; he understands and agrees. Case discussed with Dr. Rawls of [facility]. Medical Screen Exam Complete: Yes Emergency Medical Condition: Yes Differential Diagnosis Differential Diagnosis: Differential diagnosis includes, but is not limited to: pneumonia, bronchitis, influenza, CHF exacerbation, COPD Lab Data Lab results reviewed: Yes I reviewed the patient's lab results. Result diagrams: 03/26/18 12:35 03/26/18 12:35 Lab Results 03/26/18 03/26/18 03/26/18 Range/Units 12:35 12:35 12:35 WBC 7.7 (4.0-11.0) th/mm3 RBC 4.47 L (4.50-5.90) mil/mm3 Hgb 13.7 (13.0-17.0) gm/dL Hct 41.1 (39.0-51.0) % MCV 92.0 (80.0-100.0) fL MCH 30.7 (27.0-34.0) pg MCHC 33.4 (32.0-36.0) % RDW 15.1 (11.6-17.2) % Plt Count 164 (150-450) th/mm3 MPV 8.4 (7.0-11.0) fL Neut % (Auto) 69.6 (16.0-70.0) % Lymph % (Auto) 10.5 (9.0-44.0) % Boundary % (Auto) 15.4 H (0.0-8.0) % Eos % (Auto) 4.0 (0.0-4.0) % Baso % (Auto) 0.5 (0.0-2.0) % Neut # (Auto) 5.4 (1.8-7.7) th/mm3 Lymph # (Auto) 0.8 L (1.0-4.8) th/mm3 Boundary # (Auto) 1.2 H (0.0-0.9) th/mm3 Eos # (Auto) 0.3 (0.0-0.4) th/mm3 Baso # (Auto) 0.0 (0.0-0.2) th/mm3 WBC Differential . Differential Comment Auto diff final Sodium 137 (136-145) meq/L Potassium 4.7 (3.5-5.1) meq/L Chloride 100 (98-107) meq/L Carbon Dioxide 27.8 (21.0-32.0) meq/L Anion Gap 9 (5-15) meq/L BUN 21 H (7-18) mg/dL Creatinine 1.12 (0.60-1.30) mg/dL Estimated GFR 67 L (>89) mL/min Random Glucose 98 (74-106) mg/dL Calcium 8.9 (8.5-10.1) mg/dL Magnesium 1.8 (1.5-2.5) mg/dL Total Bilirubin 0.7 (0.2-1.0) mg/dL AST 34 (15-37) U/L ALT 31 (12-78) U/L Alkaline Phosphatase 59 (45-117) U/L Troponin I Less than 0.02 L (0.02-0.05) ng/mL B-Natriuretic Peptide 112 H (0-100) pg/mL Total Protein 7.7 (6.4-8.2) g/dL Albumin 4.2 (3.4-5.0) g/dL Imaging Data Radiologist's impression: Chest X-Ray 03/26/18 12:19 CONCLUSION: 1. Interval enlargement of the heart compared to prior study; further evaluation for pericardial effusion should be considered. 2. No evidence of acute congestion or airspace disease. 3. Status post CABG. ECG Data Attestation: I personally reviewed and interpreted this ECG as follows: Interpretation: Rate: 100-150 BPM Rhythm: A fib [place]: Normal Intervals: Normal intervals, no blocks, QTc 390 ms Q waves: aVL T waves: Upright, no inversions ST segments: No elevations or depressions Impression: Non-specific EKG, rapid A fib, otherwise no changes as compared to EKG from 04/20/2016. Discharge Plan Discharge Disposition Patient Disposition: ED Admit(ED Internal Use Only) Discharge Condition Condition: Stable Discharge Order Discharge Orders: ED Use Only Admit Order (Routine); Ordered 03/26/18 Ordered By: Ava Richter Discharge Details Diagnosis: Dyspnea, Cardiomegaly Physicians Team ED Provider: Ava Richter Primary Care Provider: UNKNOWN, Attending Provider: Geoff Rawls Discharge Interventions Interventions: Vital Signs Last Done: 03/26/18 13:18 Status ED Status: Admitted Observation Patient
[2018-03-26 13:02] LABS: Alanine Aminotransferase 31 U/L (12-78)
[2018-03-26 13:05] LABS: Albumin 4.2 g/dL (3.4-5.0); Anion Gap 9 meq/L (5-15); Aspartate Aminotransferase 34 U/L (15-37); Blood Urea Nitrogen 21 mg/dL (7-18); Calcium 8.9 mg/dL (8.5-10.1); Carbon Dioxide 27.8 meq/L (21.0-32.0); Chloride 100 meq/L (98-107); Glomerular Filtration Rate 67 mL/min (>89); Glucose,Random 98 mg/dL (74-106); Magnesium 1.8 mg/dL (1.5-2.5); Potassium 4.7 meq/L (3.5-5.1); Sodium 137 meq/L (136-145)
[2018-03-26 13:06] LABS: Alkaline Phosphatase 59 U/L (45-117); Total Protein 7.7 g/dL (6.4-8.2)
--- NOTE | 2018-03-26 13:25 | XR ---
EXAM DATE: 03/26/2018 1:09 PM EST AGE/SEX: 57 years / Male INDICATIONS: Shortness of breath. CLINICAL DATA: This is the patient's initial encounter. Patient reports that signs and symptoms have been present for 1 day and indicates a pain score of 0/10. MEDICAL/SURGICAL HISTORY: . Chronic obstructive pulmonary disease. Congestive hearrt failure. H ypertension. Asthma. Appendectomy. Mitral valve repair. COMPARISON: [facility], XR CHEST PA AND LAT, 07/07/2017. . FINDINGS: Several larger of the heart is noted compared to the patient's previous exam. Postsurgical changes fo llowing CABG are identified. The lungs are well expanded and free of significant congestion or acute airspace disease. CONCLUSION: 1. Interval enlargement of the heart compared to prior study; further evaluation for pericardial eff usion should be considered. 2. No evidence of acute congestion or airspace disease. 3. Status post CABG. Electronically signed by: Ashwin Miguel MD Board Certified Radiologist 03/26/2018 1:24 PM EST
[2018-03-26] MEDS ORDERED: hydrALAZINE HCl Inj 20 MG/ML Vial IV.PUSH PRN (14:39)
[2018-03-26] MEDS ORDERED: dilTIAZem Inj 125 MG in Sodium Chlor 0.9% Inj 100 ML IV.CONT PRN (14:43)
[2018-03-26] MEDS ORDERED: Acetaminophen 325 MG Tablet PO PRN (14:44)
[2018-03-26] MEDS ORDERED: Bisacodyl 10 MG Supp RECTAL PRN (14:44)
[2018-03-26] MEDS ORDERED: Warfarin Consult Pharmacy OTHER PRN (14:47)
[2018-03-26] MEDS ORDERED: GLYCERIN EACH EYE PRN (14:49)
[2018-03-26] MEDS ORDERED: CARBOXYMETHYLCELLULOSE EACH EYE PRN (14:49)
--- NOTE | 2018-03-26 14:59 | P.HPIM ---
History of Present Illness Primary Care Physician: UNKNOWN History of Present Illness: This is a 57-year-old male with a history of asthma , hypertension, congestive heart failure noncompliant with Lasix, atrial fibrillation, hyperlipidemia, A. fib on Coumadin and sleep apnea on CPAP. He presents to the emergency department because of shortness of breath for the past 5 days. Complains of worsening productive cough of whitish to yellowish phlegm associated with shortness of breath, wheezing, fever and chills. He also has pleuritic chest pain when he coughs. In the emergency department, he received nebulizations and steroids and felt slightly better. Flu screen is negative. Chest x-ray definitely reviewed by me with no infiltrates but has enlarged heart. There is no evidence of hemodynamic instability at this time( elevated BP) No pulses paradoxus. EKG independently reviewed by me with atrial fibrillation with RVR no electrical alternans. Telemetry shows RVR between 110-120 all other systems reviewed negative Review of Systems Review of Systems: all other systems reviewed are negative REPLACED BY [facility] Medical History Medical History Allergic rhinitis (Acute) Asthma (Acute) Atrial fibrillation (Acute) Carpal tunnel syndrome (Acute) Chest pain, atypical (Acute) Chronic depression (Acute) Chronic low back pain (Acute) Congestive heart failure (Acute) Generalized anxiety disorder (Acute) Hyperlipidemia (Acute) Hypertension (Acute) Impingement syndrome, shoulder, left (Acute) jail current use of anticoagulant therapy (Acute) Major depression in partial remission (Acute) Mitral valve stenosis (Acute) Obesity (Acute) Osteoarthritis (Acute) Peripheral venous insufficiency (Acute) Personality disorder, unspecified (Acute) Sciatica (Acute) Sensorineural hearing loss (Acute) Sleep apnea (Acute) Traumatic arthritis (Acute) Trichiasis of eyelid without entropion (Acute) Family History Family History Other Coronary artery disease Social History Social History Substance History: No History of Abuse Smoking Status: Never smoker How Often Do You Have a Drink Containing Alcohol: Never Recent Travel in [facility] within the Last 8 Weeks: No Recent Out of Country Travel within the Last 8 Weeks: No Immunization History Tetanus Immunization: <5 Years Medications and Allergies Allergies Allergy/AdvReac Type Severity Reaction Status Date / Time gabapentin Allergy Severe Hives Verified 03/26/18 12:21 nitroglycerin Allergy Severe Hotflash Verified 03/26/18 12:21 sildenafil Allergy Severe Hives Verified 03/26/18 12:21 silver sulfadiazine Allergy Severe Hives Verified 03/26/18 12:21 Sulfa (Sulfonamide Allergy Severe Hives Verified 03/26/18 12:21 Antibiotics) Home Medications Medication Instructions Recorded Confirmed Type albuterol sulfate 2 puff INHALATION Q4-6H PRN 03/26/18 03/26/18 History baclofen 10 mg PO TID 03/26/18 03/26/18 History budesonide-formoterol 2 puff INHALATION BID 03/26/18 03/26/18 History carboxymethylcellulose-glycern 2 drp OPHTHALMIC (EYE) HS PRN 03/26/18 03/26/18 History [Lubricating Drops] carvedilol 12.5 mg PO BID 03/26/18 03/26/18 History fluticasone 2 spray INTRANASAL DAILY 03/26/18 03/26/18 History hydroxyzine HCl 25 mg PO BID NEB PRN 03/26/18 03/26/18 History lamotrigine 100 mg PO DAILY 03/26/18 03/26/18 History montelukast 10 mg PO QPM 03/26/18 03/26/18 History venlafaxine 150 mg PO DAILY 03/26/18 03/26/18 History warfarin 5 mg PO DAILY 03/26/18 03/26/18 History Active Medications: Active Medications Acetaminophen (Tylenol) 650 mg PO Q4H PRN PRN Reason: Temp > 100.4 Al Hydroxide/Mg Hydroxide (Milk Of Mica Ying) 30 ml PO Q12H PRN PRN Reason: Mild Constipation Albuterol (Albuterol Neb (Prn)) 2.5 mg NEB Q2H PRN PRN Reason: SHORTNESS OF BREATH Albuterol (Duoneb Neb (Nela)) 1 ampul NEB Q6HR NEB NELA Baclofen (Lioresal) 10 mg PO TID NELA Bisacodyl (Dulcolax Supp) 10 mg RECTAL DAILY PRN PRN Reason: SEVERE CONSITIPATION Budesonide/Formoterol Fumarate (Symbicort 160/4.5 Mcg Inh) 2 puff INH BID NELA Carvedilol (Coreg) 12.5 mg PO BID NELA Clonidine HCl (Catapres) 0.1 mg PO Q6H PRN PRN Reason: SEE LABEL COMMENTS Enalaprilat (Vasotec Inj) 1.25 mg IV.PUSH Q6H PRN PRN Reason: SEE LABEL COMMENTS Fluticasone Propionate (Flonase Nasal [place]) 2 spray EACH NARE DAILY NELA Hydralazine HCl (Apresoline Inj) 10 mg IV.PUSH Q6H PRN PRN Reason: SEE LABEL COMMENTS Hydroxyzine HCl (Atarax) 25 mg PO BID NEB PRN PRN Reason: Insomnia Diltiazem HCl 125 mg/ Sodium (Chloride) 125 mls @ 5 mls/hr IV.CONT TITRATE PRN ; Protocol PRN Reason: Per Protocol Lactulose (Lactulose Liq) 30 ml PO DAILY PRN PRN Reason: SEVERE CONSITIPATION Levofloxacin (Levaquin) 750 mg PO DAILY NELA Methylprednisolone Sodium Succinate (Solumedrol Inj) 60 mg IV.PUSH Q6H NELA Montelukast Sodium (Singulair) 10 mg PO QPM NELA Non-Formulary Medication (Carboxymethylcellulose-Glycern [Lubricating Drops]) 2 drp EACH EYE HS PRN PRN Reason: Dry Eyes Non-Formulary Medication (Lamotrigine [Lamotrigine]) 100 mg PO DAILY NELA Non-Formulary Medication (Venlafaxine [Venlafaxine]) 150 mg PO DAILY NELA Ondansetron HCl (Zofran Inj) 4 mg IV.PUSH Q6H PRN PRN Reason: NAUSEA OR VOMITING Patient Medication Teaching (Coumadin Booklet) 1 each OTHER ONCE ONE Stop: 03/26/18 14:48 Patient Medication Teaching (Coumadin Booklet) 1 each OTHER ONCE ONE Stop: 03/26/18 14:48 Pharmacy Profile Note (Coumadin Consult Pharmacy) 1 each OTHER UNSCH PRN PRN Reason: PHARMACY DOCUMENTATION Senna/Docusate Sodium (Krystle-Colace) 1 tab PO BID [facility] Sennosides (Senokot) 17.2 mg PO Q12H PRN PRN Reason: Moderate Constipation Sodium Chloride (Ns Flush) 2 ml IV.FLUSH BID NELA Sodium Chloride (Ns Flush) 2 ml IV.FLUSH PRN PRN PRN Reason: FLUSH AFTER USING IV ACCESS Warfarin Sodium (Coumadin) 5 mg PO HS NELA Physical Exam Vital signs: Last Vital Signs Temp 99.3 F 03/26/18 11:55 Pulse 80 03/26/18 13:18 Resp 18 03/26/18 13:18 BP 130/74 03/26/18 13:18 Pulse Ox 99 03/26/18 13:18 Intake & Output 03/24/18 03/25/18 03/26/18 03/27/18 06:59 06:59 06:59 06:59 Weight 128.82 kg Narrative: GENERAL: Well-developed, obese in no distress SKIN: Warm and dry. HEAD: Atraumatic. Normocephalic. EYES: Pupils equal and round. No scleral icterus. No injection or drainage. ENT: No nasal bleeding or discharge. Mucous membranes pink and moist. NECK: Trachea midline. No JVD. CARDIOVASCULAR: Irregularly irregular tachycardic RESPIRATORY: No accessory muscle use. Expiratory wheezes bilaterally GASTROINTESTINAL: Abdomen soft, non-tender, nondistended. MUSCULOSKELETAL: Extremities without clubbing, cyanosis with bilateral lower extremity pitting edema. No obvious deformities. NEUROLOGICAL: Awake and alert. No obvious cranial nerve deficits. Motor grossly within normal limits. Five out of 5 muscle strength in the arms and legs. Normal speech. PSYCHIATRIC: Appropriate mood and affect; insight and judgment normal. Results Labs CBC & Chem 7: 03/26/18 12:35 03/26/18 12:35 Imaging Impressions Chest X-Ray 03/26/18 12:19 CONCLUSION: 1. Interval enlargement of the heart compared to prior study; further evaluation for pericardial effusion should be considered. 2. No evidence of acute congestion or airspace disease. 3. Status post CABG. Caprini VTE Risk Assessment Caprini VTE Risk Assessment: Moderate/High Risk (score >= 2) Caprini Risk Assessment Model: Point Value = 1 Point Value = 2 Point Value = 3 Point Value = 5 Age 41-60 Minor surgery BMI > 25 kg/m2 Swollen legs Varicose veins or History of unexplained or recurrent spontaneous Oral contraceptives or hormone replacement Sepsis (< 1 month) Serious lung disease, including pneumonia (< 1 month) Abnormal pulmonary function Acute myocardial infarction Congestive heart failure (< 1 month) History of inflammatory bowel disease Medical patient at bed rest Age 61-74 Arthroscopic surgery Major open surgery (> 45 min) Laparoscopic surgery (> 45 min) Malignancy Confined to bed (> 72 hours) Immobilizing plaster cast Central venous access Age >= 75 History of VTE Family history of VTE Factor V Leiden Prothrombin [id number] Lupus anticoagulant Anticardiolipin antibodies Elevated serum homocysteine Heparin-induced thrombocytopenia Other congenital or acquired thrombophilia Stroke (< 1 month) Elective arthroplasty Hip, pelvis, or leg fracture Acute spinal cord injury (< 1 month) Prophylaxis Regimen: Total Risk Factor Score Risk Level Prophylaxis Regimen 0-1 Low Early ambulation 2 Moderate Order ONE of the following: *Sequential Compression Device (SCD) *Heparin 5000 units SQ BID 3-4 Higher Order ONE of the following medications: *Heparin 5000 units SQ TID *Enoxaparin/Lovenox 40 mg SQ daily (WT < 150 kg, CrCl > 30 mL/min) *Enoxaparin/Lovenox 30 mg SQ daily (WT < 150 kg, CrCl > 10-29 mL/min) *Enoxaparin/Lovenox 30 mg SQ BID (WT < 150 kg, CrCl > 30 mL/min) AND/OR *Sequential Compression Device (SCD) 5 or more Highest Order ONE of the following medications: *Heparin 5000 units SQ TID (Preferred with Epidurals) *Enoxaparin/Lovenox 40 mg SQ daily (WT < 150 kg, CrCl > 30 mL/min) *Enoxaparin/Lovenox 30 mg SQ daily (WT < 150 kg, CrCl > 10-29 mL/min) *Enoxaparin/Lovenox 30 mg SQ BID (WT < 150 kg, CrCl > 30 mL/min) AND *Sequential Compression Device (SCD) Assessment and Plan Plan This is a 57-year-old male with a history of asthma, hypertension, congestive heart failure noncompliant with Lasix, atrial fibrillation, hyperlipidemia, A. fib on Coumadin and sleep apnea on CPAP. He presents to the emergency department because of shortness of breath for the past 5 days. Complains of worsening productive cough of whitish to yellowish phlegm associated with shortness of breath, wheezing, fever and chills. He also has pleuritic chest pain when he coughs. In the emergency department, he received nebulizations and steroids and felt slightly better. Flu screen is negative. Chest x-ray definitely reviewed by me with no infiltrates but has enlarged heart. There is no evidence of hemodynamic instability at this time(elevated BP) No pulses paradoxus. EKG independently reviewed by me with atrial fibrillation with RVR no electrical alternans. Telemetry shows RVR between 110-120 Acute bronchitis with asthma exacerbation. Flu screen negative. Continue nebulization, steroids and start Levaquin Enlarged heart suspect pericardial effusion. No evidence of cardiac tamponade at this time. Obtain 2D echo. Patient has evidence of heart failure exacerbation we will start Lasix Uncontrolled hypertension. Restart home medications with as needed IV Vasotec, hydralazine and clonidine. Patient will also be on Lasix Atrial fibrillation with RVR. Continue Coreg. As needed Cardizem drip. Restart Coumadin and obtain stat INR pharmacy to dose DVT prophylaxis with early ambulation and Coumadin Patient will be in in [facility]
[2018-03-26 15:21] LABS: INR 2.1 Ratio; Prothrombin Time 21.1 sec (9.8-11.6)
[2018-03-26] MEDS ORDERED: Carboxymethylcellulose 0.5% Opth Drops 15 ML Bottle EACH EYE PRN (16:03)
--- NOTE | 2018-03-26 16:49 | ECHRPT ---
Indication: Effusion CONCLUSIONS The left ventricular systolic function is low normal with an estimated ejection fraction in the rang e of 50- 55%. Mild concentric left ventricular hypertrophy. Mitral valve annuloplasty ring is probably present. Severe mitral valve stenosis (mean grad 12, MVA 1.2 by pressure half time). There is a small pericardial effusion present. No hemodynamically significant echocardiographic features were observed (no pre-tamponade physiology). BP: / HR: Rhythm: MEASUREMENTS (Male / Female) Normal Values Technical Quality:Technically difficult study 2D ECHO LV Diastolic Diameter PLAX 5.2 cm 4.2 - 5.9 / 3.9 - 5.3 cm LV Systolic Diameter PLAX 3.9 cm IVS Diastolic Thickness 1.1 cm 0.6 - 1.0 / 0.6 - 0.9 cm LVPW Diastolic Thickness 1.1 cm 0.6 - 1.0 / 0.6 - 0.9 cm LV Relative Wall Thickness 0.4 LVOT Diameter 2.0 cm Aortic Root Diameter 2.7 cm LA Systolic Diameter LX 3.8 cm 3.0 - 4.0 / 2.7 - 3.8 cm DOPPLER AV Peak Velocity 177.0 cm/s AV Peak Gradient 12.5 mmHg LVOT Peak Velocity 127.0 cm/s LVOT Peak Gradient 6.5 mmHg AV Area Cont Eq pk 2.3 cm MV Peak Velocity 244.0 cm/s MV Peak Gradient 23.8 mmHg MV Mean Velocity 186.0 cm/s MV Mean Gradient 16.0 mmHg Mitral E Point Velocity 225.0 cm/s LV E' Lateral Velocity 10.8 cm/s Mitral E to LV E' Lateral Ratio 20.8 LV E' Septal Velocity 8.9 cm/s Mitral E to LV E' Septal Ratio 25.4 TR Peak Velocity 303.0 cm/s TR Peak Gradient 36.7 mmHg Right Atrial Pressure 10.0 mmHg Pulmonary Artery Systolic Pressu 46.7 mmHg Right Ventricular Systolic Press 46.7 mmHg PV Peak Velocity 134.0 cm/s PV Peak Gradient 7.2 mmHg FINDINGS LEFT VENTRICLE Normal left ventricular size. Mild concentric left ventricular hypertrophy. The left ventricular systolic function is low normal with an estimated ejection fraction in the rang e of 50- 55%. RIGHT VENTRICLE Normal right ventricular size and systolic function. Does not appear to collapse in diastole. LEFT ATRIUM The left atrial size is normal. RIGHT ATRIUM The right atrial size is normal. ATRIAL SEPTUM Normal atrial septal thickness without atrial level shunting by limited color doppler interrogation. AORTA The aortic root and proximal ascending aorta are normal in size on limited imaging. MITRAL VALVE Mitral valve annuloplasty ring is probably present. Trace mitral valve regurgitation. Severe mitral valve stenosis (mean grad 12, MVA 1.2 by pressure half time). AORTIC VALVE The aortic valve is not well visualized. No aortic valve regurgitation. No aortic valve stenosis. TRICUSPID VALVE Grossly normal There is trace tricuspid valve regurgitation. The estimated pulmonary arterial pressure is 47 mmHg. PULMONARY VALVE The pulmonary valve is not well visualized. PERICARDIUM There is a small pericardial effusion present. No hemodynamically significant echocardiographic features were observed (no pre-tamponade physiology). Abelino Law DO (Electronically Signed) Final Date:26 March 2018 16:49
[2018-03-26] MEDS: levoFLOXacin 750 MG Tablet PO SCH (17:21)
[2018-03-26] MEDS: Montelukast 10 MG Tablet PO SCH (18:24)
[2018-03-26] MEDS: Baclofen 10 MG Tablet PO SCH (18:24)
[2018-03-26] MEDS: MethylPREDNISolone Sod Succinate Inj 40 MG/ML Vial IV.PUSH SCH ×2 (18:25→23:17)
[2018-03-26] MEDS: Budesonide-Formoterol 160/4.5 MCG 6 GM Inhaler INH SCH (21:46)
[2018-03-26] MEDS: Senna/Docusate Sodium 8.6/50 MG Tablet PO SCH (21:49)
[2018-03-26] MEDS: Carvedilol 12.5 MG Tablet PO SCH (21:50)
[2018-03-27] MEDS: guaiFENesin/Codeine Syrup 200 MG/20 MG 10 ML UDC PO PRN ×5 (00:31→20:20)
[2018-03-27] MEDS: MethylPREDNISolone Sod Succinate Inj 40 MG/ML Vial IV.PUSH SCH ×4 (05:03→21:26)
[2018-03-27 07:03] LABS: Calcium 9.2 mg/dL (8.5-10.1); Carbon Dioxide 30.2 meq/L (21.0-32.0); Potassium 4.2 meq/L (3.5-5.1)
[2018-03-27] MEDS ORDERED: LAMOTRIGINE 100 MG PO SCH (09:00)
[2018-03-27] MEDS ORDERED: Non-Formulary Drug (Venlafaxine [Venlafaxine] 150 MG) PO SCH (09:00)
[2018-03-27] MEDS: Venlafaxine XR 75 MG Capsule PO SCH (09:23)
[2018-03-27] MEDS: Baclofen 10 MG Tablet PO SCH ×3 (09:24→17:16)
[2018-03-27] MEDS: levoFLOXacin 750 MG Tablet PO SCH (09:24)
[2018-03-27] MEDS: lamoTRIgine 100 MG Tablet PO SCH (09:24)
[2018-03-27] MEDS: Carvedilol 12.5 MG Tablet PO SCH ×2 (09:24→21:26)
[2018-03-27] MEDS: Budesonide-Formoterol 160/4.5 MCG 6 GM Inhaler INH SCH ×2 (09:25→21:26)
[2018-03-27] MEDS: Senna/Docusate Sodium 8.6/50 MG Tablet PO SCH ×2 (09:25→21:34)
--- NOTE | 2018-03-27 12:34 | P.PNIM ---
Subjective Interval history: Follow-up for shortness of breath, not short of breath, denies any palpitations. No fever or chills. Still coughing but better. Physical Exam Vital signs: Last Vital Signs Temp 99.0 F 03/27/18 07:00 Pulse 78 03/27/18 11:00 Resp 20 03/27/18 07:00 BP 144/85 H 03/27/18 07:00 Pulse Ox 92 L 03/27/18 08:00 Intake & Output 03/25/18 03/26/18 03/27/18 03/28/18 06:59 06:59 06:59 06:59 Intake Total 480 / 480 Output Total 2555 / 2555 Balance -2074 / -2074 Weight 124.6 kg Narrative: GENERAL: Well-developed, obese in no distress CARDIOVASCULAR: Irregularly irregular tachycardic RESPIRATORY: No accessory muscle use. Expiratory wheezes bilaterally, occasional crackles. GASTROINTESTINAL: Abdomen soft, non-tender, nondistended. MUSCULOSKELETAL: Extremities without clubbing, cyanosis with bilateral lower extremity pitting edema, 2+. No obvious deformities. NEUROLOGICAL: Awake and alert. No obvious cranial nerve deficits. Motor grossly within normal limits. Five out of 5 muscle strength in the arms and legs. Normal speech. Results Labs CBC & Chem 7: 03/26/18 12:35 03/27/18 05:45 Labs: Microbiology 03/26/18 13:10 Nasal Wash Influenza Types A,B Antigen - Final Negative for FLU A and B antigen Infection due to influenza A or B cannot be ruled out since the antigen present in the sample may be below the detection limit of the test. Imaging Imaging: Impressions Chest X-Ray 03/26/18 12:19 CONCLUSION: 1. Interval enlargement of the heart compared to prior study; further evaluation for pericardial effusion should be considered. 2. No evidence of acute congestion or airspace disease. 3. Status post CABG. Assessment and Plan Plan This is a 57-year-old male with a history of asthma, hypertension, congestive heart failure noncompliant with Lasix, atrial fibrillation, hyperlipidemia, A. fib on Coumadin and sleep apnea on CPAP presented to the hospital for shortness of breath for 5 days with worsening cough and yellowish phlegm, fever, chills and pleuritic chest pain. Chest x-ray showed no infiltrate with cardiomegaly. EKG showed atrial fibrillation with RVR. Acute bronchitis with asthma exacerbation - Flu screen negative. Continue nebulization, switch Levaquin to oral, decrease steroids, switch to oral tomorrow. Cardiomegaly suspect pericardial effusion- No evidence of cardiac tamponade at this time. Echocardiogram pending, with evidence of heart failure, continue Lasix 40 mg twice a day intravenously for now. Recheck BMP tomorrow. Atrial fibrillation with RVR. Continue Coreg. Cardizem drip at 5 mg/h, switch to Cardizem orally. Restart Coumadin and obtain stat INR pharmacy to dose Uncontrolled hypertension- Restart home medications with as needed IV Vasotec , hydralazine and clonidine. Patient will also be on Lasix DVT prophylaxis with early ambulation and Coumadin Discharge home when ready, likely Friday or Friday.
[2018-03-27] MEDS ORDERED: Warfarin Consult Pharmacy OTHER PRN (12:39)
[2018-03-27] MEDS ORDERED: dilTIAZem 30 MG Tablet PO ONE ×2 (13:00)
[2018-03-27] MEDS ORDERED: dilTIAZem 30 MG Tablet PO SCH (13:00)
--- NOTE | 2018-03-27 16:16 | ECG ---
Date Performed: 03/26/2018 Time Performed: 13:16:44 PTAGE: 57 years EKG: ATRIAL FIBRILLATION WITH RAPID VENTRICULAR RESPONSE NONSPECIFIC ST & T-WAVE ABNORMALITY ABN ORMAL RHYTHM ECG PREVIOUS TRACING : 04/20/2016 15.33 No significant change from previous tracing noted. DOCTOR: Panfilo Stone Interpretating Date/Time 03/27/2018 16:15:36
[2018-03-27] MEDS: dilTIAZem 30 MG Tablet PO SCH (17:16)
[2018-03-27] MEDS: Montelukast 10 MG Tablet PO SCH (17:16)
[2018-03-28] MEDS: dilTIAZem 30 MG Tablet PO SCH ×3 (00:27→06:05)
[2018-03-28] MEDS: guaiFENesin/Codeine Syrup 200 MG/20 MG 10 ML UDC PO PRN ×5 (00:27→21:13)
[2018-03-28] MEDS: MethylPREDNISolone Sod Succinate Inj 40 MG/ML Vial IV.PUSH SCH (06:06)
[2018-03-28] MEDS: levoFLOXacin 750 MG Tablet PO SCH (08:00)
[2018-03-28] MEDS: lamoTRIgine 100 MG Tablet PO SCH (08:00)
[2018-03-28] MEDS: Baclofen 10 MG Tablet PO SCH ×3 (08:00→17:03)
[2018-03-28] MEDS: Carvedilol 12.5 MG Tablet PO SCH ×2 (08:00→21:12)
[2018-03-28] MEDS: Venlafaxine XR 75 MG Capsule PO SCH (08:00)
[2018-03-28] MEDS: Senna/Docusate Sodium 8.6/50 MG Tablet PO SCH ×2 (08:01→21:14)
[2018-03-28 08:25] LABS: INR 1.8 Ratio; Prothrombin Time 18.7 sec (9.8-11.6)
[2018-03-28 08:32] LABS: Calcium 8.7 mg/dL (8.5-10.1); Carbon Dioxide 30.2 meq/L (21.0-32.0); Potassium 4.3 meq/L (3.5-5.1)
--- NOTE | 2018-03-28 09:45 | P.PNIM ---
Subjective Interval history: Patient feels better, on room air, no nausea or vomiting. Still short of breath , not yet back to baseline. Steroids, Lasix. Heart rate stable, in sinus rhythm. No fever. Physical Exam Vital signs: Last Vital Signs Temp 98.1 F 03/28/18 07:00 Pulse 75 03/28/18 09:00 Resp 14 03/28/18 09:00 BP 139/95 H 03/28/18 07:00 Pulse Ox 97 03/28/18 08:00 Intake & Output 03/26/18 03/27/18 03/28/18 03/29/18 06:59 06:59 06:59 06:59 Intake Total 480 / 480 1145 / 1145 Output Total 2555 / 2555 2400 / 2400 Balance -2075 / -2075 -1255 / -1255 Weight 124.6 kg 124.9 kg Narrative: GENERAL: Well-developed, obese in no distress CARDIOVASCULAR: Regular rate and rhythm, no murmurs. RESPIRATORY: No accessory muscle use. Expiratory wheezes bilaterally, occasional crackles and occasional wheezing. GASTROINTESTINAL: Abdomen soft, non-tender, nondistended. MUSCULOSKELETAL: Extremities without clubbing, cyanosis with bilateral lower extremity pitting edema, 1+. No obvious deformities. NEUROLOGICAL: Awake and alert. No obvious cranial nerve deficits. Motor grossly within normal limits. Five out of 5 muscle strength in the arms and legs. Normal speech. Results Labs CBC & Chem 7: 03/26/18 12:35 03/28/18 07:02 Assessment and Plan Plan This is a 57-year-old male with a history of asthma, hypertension, congestive heart failure noncompliant with Lasix, atrial fibrillation, hyperlipidemia, A. fib on Coumadin and sleep apnea on CPAP presented to the hospital for shortness of breath for 5 days with worsening cough and yellowish phlegm, fever, chills and pleuritic chest pain. Chest x-ray showed no infiltrate with cardiomegaly. EKG showed atrial fibrillation with RVR. Patient was started on Cardizem drip, switched to Cardizem orally. Patient also found to have acute bronchitis with asthma exacerbation, chest x-ray did not show any consolidation or acute congestion. Flu screen negative. Patient was started on Levaquin intravenously and switched to oral. Echocardiogram done showed an ejection fraction of 50-55% with mild concentric LVH. Patient likely has diastolic congestive heart failure. Patient was also started on methylprednisolone intravenously and switched to oral. Patient will continue on Levaquin, prednisone taper and Lasix. Patient's cardiac rhythm is back to sinus rhythm. Acute bronchitis with asthma exacerbation - Flu screen negative. Continue nebulization, continue Levaquin, taper steroids, switch methylprednisolone to prednisone 40 mg twice a day, continue to taper. Cardiomegaly suspect pericardial effusion secondary to congestive heart failure , diastolic- No evidence of cardiac tamponade at this time very small pericardial effusion and echocardiogram. Ejection fraction is 50-55% with mild concentric LVH, continue Lasix 40 mg twice a day, switch to oral. Check BMP tomorrow. Atrial fibrillation with RVR- Continue Coreg. Off Cardizem drip, continue Cardizem orally, switch to long-acting. On Coumadin, INR 1.8. Check INR tomorrow. Uncontrolled hypertension- Restart home medications with as needed IV Vasotec , hydralazine and clonidine. Patient will also be on Lasix on discharge. DVT prophylaxis with early ambulation and Coumadin Discharge home when ready, likely Friday Ambulatory.
[2018-03-28] MEDS: Budesonide-Formoterol 160/4.5 MCG 6 GM Inhaler INH SCH ×2 (11:17→21:13)
[2018-03-28] MEDS: dilTIAZem CD 120 MG Capsule PO SCH (12:24)
[2018-03-28] MEDS: Montelukast 10 MG Tablet PO SCH (17:03)
[2018-03-28] MEDS: predniSONE 20 MG Tablet PO SCH (21:12)
[2018-03-29] MEDS: guaiFENesin/Codeine Syrup 200 MG/20 MG 10 ML UDC PO PRN ×3 (01:02→08:40)
[2018-03-29 07:50] LABS: Calcium 8.4 mg/dL (8.5-10.1); Potassium 4.1 meq/L (3.5-5.1)
[2018-03-29] MEDS: levoFLOXacin 750 MG Tablet PO SCH (08:40)
[2018-03-29] MEDS: Venlafaxine XR 75 MG Capsule PO SCH (08:40)
[2018-03-29] MEDS: Carvedilol 12.5 MG Tablet PO SCH (08:40)
[2018-03-29] MEDS: dilTIAZem CD 120 MG Capsule PO SCH (08:40)
[2018-03-29] MEDS: lamoTRIgine 100 MG Tablet PO SCH (08:41)
[2018-03-29] MEDS: predniSONE 20 MG Tablet PO SCH (08:41)
[2018-03-29] MEDS: Budesonide-Formoterol 160/4.5 MCG 6 GM Inhaler INH SCH (08:41)
[2018-03-29] MEDS: Baclofen 10 MG Tablet PO SCH (08:41)
[2018-03-29] MEDS ORDERED: Furosemide 40 MG Tablet PO SCH (09:00)
--- NOTE | 2018-03-29 09:11 | P.DS ---
DS: Providers Date of admission: 03/27/18 12:33 Primary care physician: UNKNOWN Brief History from admission: This is a 57-year-old male with a history of asthma, hypertension, congestive heart failure noncompliant with Lasix, atrial fibrillation, hyperlipidemia, A. fib on Coumadin and sleep apnea on CPAP. He presents to the emergency department because of shortness of breath for the past 5 days. Complains of worsening productive cough of whitish to yellowish phlegm associated with shortness of breath, wheezing, fever and chills. He also has pleuritic chest pain when he coughs. In the emergency department, he received nebulizations and steroids and felt slightly better. Flu screen is negative. Chest x-ray definitely reviewed by me with no infiltrates but has enlarged heart. There is no evidence of hemodynamic instability at this time( elevated BP) No pulses paradoxus. EKG independently reviewed by me with atrial fibrillation with RVR no electrical alternans. Telemetry shows RVR between 110-120 all other systems reviewed negative DS: Diagnosis Discharge Diagnosis (1) Acute bronchitis: Status: Acute (2) Asthma exacerbation: Status: Acute (3) Diastolic CHF, acute: Status: Acute Diagnosis: Principal (4) Pericardial effusion: Status: Acute (5) Hypertension: Status: Acute (6) Atrial fibrillation with RVR: Status: Acute DS: Summary This is a 57-year-old male with a history of asthma, hypertension, congestive heart failure noncompliant with Lasix, atrial fibrillation, hyperlipidemia, A. fib on Coumadin and sleep apnea on CPAP presented to the hospital for shortness of breath for 5 days with worsening cough and yellowish phlegm, fever, chills and pleuritic chest pain. Chest x-ray showed no infiltrate with cardiomegaly. EKG showed atrial fibrillation with RVR. Patient was started on Cardizem drip, switched to Cardizem orally. Patient also found to have acute bronchitis with asthma exacerbation, chest x-ray did not show any consolidation or acute congestion. Flu screen negative. Patient was started on Levaquin intravenously and switched to oral and will finish 1 week of treatment. Echocardiogram done showed an ejection fraction of 50-55% with mild concentric LVH. Patient likely has diastolic congestive heart failure. Patient was also started on methylprednisolone intravenously and switched to oral and will finish a taper. Echocardiogram showed a very small pericardial effusion. Patient will be discharged on Lasix 40 mg twice a day and Coumadin. Time Spent with Patient Total time spent providing and/or coordinating discharge services: Exam Narrative Exam Narrative: S> no complaints, ambulating, on RA when sitted, not SOB, no chest pain or palpitations O> GENERAL: Well-developed, obese in no distress CARDIOVASCULAR: Regular rate and rhythm, no murmurs. RESPIRATORY: No accessory muscle use. No wheezing or crackles. No rhonchi. GASTROINTESTINAL: Abdomen soft, non-tender, nondistended. MUSCULOSKELETAL: Extremities without clubbing, cyanosis with trace edema. NEUROLOGICAL: Awake and alert. No obvious cranial nerve deficits. Motor grossly within normal limits. Five out of 5 muscle strength in the arms and legs. Normal speech. Results Labs on day of discharge: Labs from last 24 hours 03/29/18 06:13 Sodium 134 L Potassium 4.1 Chloride 98 Carbon Dioxide 28.0 Anion Gap 8 BUN 34 H Creatinine 1.03 Estimated GFR 74 L Random Glucose 206 H Calcium 8.4 L Impressions ITS Impressions Chest X-Ray 03/26/18 12:19 CONCLUSION: 1. Interval enlargement of the heart compared to prior study; further evaluation for pericardial effusion should be considered. 2. No evidence of acute congestion or airspace disease. 3. Status post CABG. Discharge Plan Discharge Disposition Patient Disposition: Discharge Home Discharge Condition Condition: Stable Discharge Order Discharge Orders: Discharge Order (Routine); Ordered 03/29/18 Ordered By: Radha Merino Discharge Details Anticipated Discharge Date: 03/29/18 Discharge Comment: d/c once labs are back and stable on RA Physicians Team ED Provider: Ava Richter Primary Care Provider: UNKNOWN, Attending Provider: Radha Merino Rxs /Orders / Referrals /Forms Prescriptions: New furosemide 40 mg Tablet 40 mg PO DAILY Qty: 30 RF: 0 diltiazem HCl 120 mg Capsule,Extended Release 24hr 120 mg PO DAILY Qty: 30 RF: 0 codeine-guaifenesin 10-100 mg/5 mL Liquid 10 ml PO Q4H PRN (Reason: cough interfering with rest) Qty: 1 RF: 0 levofloxacin 750 mg Tablet 750 mg PO DAILY Qty: 3 RF: 0 prednisolone 5 mg (48 tabs) tablets,dose pack See Label Instructions PO PER PKG DIR Qty: 48 RF: 0 Continue carvedilol 12.5 mg Tablet 12.5 mg PO BID RF: 0 lamotrigine 200 mg Tablet 100 mg PO DAILY RF: 0 baclofen 10 mg Tablet 10 mg PO TID RF: 0 warfarin 5 mg Tablet 5 mg PO DAILY RF: 0 montelukast 10 mg Tablet 10 mg PO QPM RF: 0 hydroxyzine HCl 25 mg Tablet 25 mg PO BID NEB PRN (Reason: Insomnia) RF: 0 albuterol sulfate 90 mcg/actuation Hfa Aerosol Inhaler 2 puff INHALATION Q4-6H PRN (Reason: Shortness Of Breath) RF: 0 fluticasone 50 mcg/actuation Ariton,Suspension 2 spray INTRANASAL DAILY RF: 0 budesonide-formoterol 160-4.5 mcg/actuation Hfa Aerosol Inhaler 2 puff INHALATION BID RF: 0 carboxymethylcellulose-glycern [Lubricating Drops] 0.5-0.9 % Drops 2 drp OPHTHALMIC (EYE) HS PRN (Reason: Dry Eyes) RF: 0 venlafaxine 150 mg Tablet Extended Release 24hr 150 mg PO DAILY RF: 0 Ambulatory Orders / Order Sets / DME: Basic Metabolic Panel (Routine) Timeframe: 3 Days Location: Determined by Patient Ordered By: Thendrex Angelique Prothrombin Time INR (Routine) Location: Determined by Patient Ordered By: Thendrex Angelique Referrals: UNKNOWN, [Primary Care Provider] - See Instructions Discharge Interventions Interventions: Discharge Planning - Case Management Last Done: 03/27/18 15:51 Status ED Status: Left Department
[2018-03-29 09:44] VITALS: RESP 14
[2018-03-29 09:54] VITALS: BP 131/91; TEMP 98
[2018-03-29 10:04] VITALS: O2SAT 97
[2018-03-29] MEDS: Senna/Docusate Sodium 8.6/50 MG Tablet PO SCH (10:25)
[2018-03-29 10:43] VITALS: PULSE 92
[2018-03-29 10:49] LABS: Prothrombin Time 20.4 sec (9.8-11.6)
== END 2018-03-29 13:55 | disposition home or self-care (01) ==
LOC: NEPE 11:48 → NEDA 11:48 → HCIS 18:00
PROVIDERS: ADMIT Hospitalist; ATTEND Hospitalist